=== PATIENT | male | born 1980 | race Caucasian/White ===

== ENCOUNTER 2016-03-20 18:11 | Emergency (ER) | payer SELFPAY ==
[~2016-03-20] VITALS: Ht 188 cm; Wt 90.0 kg
[2016-03-20 18:13] VITALS: BP 188/81; PULSE 68; RESP 17; TEMP 98.1; O2SAT 98
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
[2016-03-20] MEDS ORDERED: CLIN150 PO (19:12)
[2016-03-20] MEDS ORDERED: CLINDAMYCIN INJ 900 MG in SODIUM CHLORIDE 0.9% INJ 100 ML IV ONE (19:15)
[2016-03-20] MEDS ORDERED: ACETAMINOPHEN/HYDROcodone 325 MG/5 MG TAB PO ONE (19:15)
[2016-03-20 20:02] LABS: AUTOMATED NEUTROPHIL # 5.8 TH/MM3 (1.8-7.7); BASOPHIL % 0.3 % (0.0-2.0); EOSINOPHIL # 0.1 TH/MM3 (0-0.4); EOSINOPHIL % 1.2 % (0.0-4.0); HEMATOCRIT 40.9 % (39.0-51.0); HEMO FLAGS DIFF FINAL; LYMPH % 18.8 % (9.0-44.0); LYMPHOCYTE # 1.5 TH/MM3 (1.0-4.8); MEAN CELL VOLUME 78.6 FL (80.0-100.0); MEAN CORPUSCULAR HEMOGLOBIN 27.5 PG (27.0-34.0); MONO % 7.8 % (0.0-8.0); NEUT % 71.9 % (16.0-70.0); PLATELET COUNT 139 TH/MM3 (150-450); RED BLOOD COUNT 5.21 MIL/MM3 (4.50-5.90); RED CELL DISTRIBUTION WIDTH 13.7 % (11.6-17.2); WHITE BLOOD COUNT 8.1 TH/MM3 (4.0-11.0)
[2016-03-20 20:47] LABS: BICARBONATE 26.3 MEQ/L (21.0-32.0)
== END 2016-03-20 20:48 | disposition home or self-care (01) ==
LOC: NEPB 18:11
DX: L03.211 Cellulitis of face (principal); L02.01 Cutaneous abscess of face; F17.210 Nicotine dependence, cigarettes, uncomplicated
CPT/HCPCS: 80048; 85025; 96365

== ENCOUNTER 2017-04-13 15:17 | Inpatient (IN) | payer OTHER ==
[~2017-04-13] VITALS: Ht 180.3 cm; Wt 80.8 kg
[~2017-04-13 15:17] MED LIST: CLIN150 PO
[2017-04-13 15:55] VITALS: BP 130/91; PULSE 100; RESP 20; TEMP 99.9; O2SAT 95
[2017-04-13] MEDS ORDERED: HALOPERIDOL LACTATE 5 MG/ML AMP IM ONE (16:00)
[2017-04-13] MEDS ORDERED: LORazepam 2 MG/ML VIAL IM ONE (16:00)
[2017-04-13] MEDS ORDERED: diphenhydrAMINE HCL 50 MG/ML VIAL IM ONE (16:15)
[2017-04-13] MEDS ORDERED: SODIUM CHLOR 0.9% 1000 ML INJ 1,000 ML IV ONE ×2 (16:57)
[2017-04-13] MEDS ORDERED: VANCOMYCIN INJ 1,000 MG in SODIUM CHLOR 0.9% 250 ML INJ 250 ML IV STA (16:57)
[2017-04-13] MEDS ORDERED: PIPERACIL-TAZO 4.5 GM PREMIX 100 ML IV STA (16:57)
[2017-04-13] MEDS ORDERED: metroNIDAZOLE 500 MG INJ 100 ML IV STA (17:04)
[2017-04-13] MEDS: AZTREONAM INJ 2,000 MG in SODIUM CHLORIDE 0.9% INJ 100 ML IV STA ×2 (17:04→17:34)
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
--- NOTE | 2017-04-13 17:20 | RADRPT ---
EXAM DATE/TIME: 04/13/2017 17:03 [facility] COMPARISON: No previous studies available for comparison. INDICATIONS : Fever MEDICAL HISTORY : None. SURGICAL HISTORY : None. ENCOUNTER: Initial ACUITY: 1 day PAIN SCORE: Non-responsive. LOCATION: chest FINDINGS: A single view of the chest demonstrates the lungs to be symmetrically aerated without evidence of mas s, infiltrate or effusion. There is mild motion artifact. There is mild fullness in the right suprahi lar region which may be vascular.. Osseous structures are intact. CONCLUSION: 1. Mild motion artifact with fullness in the right suprahilar region which may be artifactual. A foll [facility] standard 2 view chest x-ray is recommended. 2. No evidence of pneumonia. Kevin Rush MD on April 13, 2017 at 17:17 Board Certified Radiologist. This report was verified electronically.
[2017-04-13 17:34] VITALS: BP 126/65; PULSE 76; RESP 22; TEMP 98.2; O2SAT 96
[2017-04-13 17:52] LABS: AUTOMATED NEUTROPHIL # 6.3 TH/MM3 (1.8-7.7); BASOPHIL % 0.1 % (0.0-2.0); EOSINOPHIL % 0.4 % (0.0-4.0); HEMATOCRIT 34.6 % (39.0-51.0); HEMOGLOBIN 12.5 GM/DL (13.0-17.0); LYMPH % 11.3 % (9.0-44.0); LYMPHOCYTE # 0.9 TH/MM3 (1.0-4.8); MEAN CELL VOLUME 81.4 FL (80.0-100.0); MEAN CORPUSCULAR HEMOGLOBIN 29.5 PG (27.0-34.0); MEAN PLATELET VOLUME 9.8 FL (7.0-11.0); MONO % 9.9 % (0.0-8.0); MONOCYTE # 0.8 TH/MM3 (0-0.9); NEUT % 78.3 % (16.0-70.0); PLATELET COUNT 128 TH/MM3 (150-450); RED BLOOD COUNT 4.25 MIL/MM3 (4.50-5.90); RED CELL DISTRIBUTION WIDTH 12.5 % (11.6-17.2); WHITE BLOOD COUNT 8.1 TH/MM3 (4.0-11.0)
[2017-04-13 17:54] LABS: MEAN CORPUSCULAR HGB CONC 36.2 % (32.0-36.0)
[2017-04-13 18:04] LABS: PROTHROMBIN TIME - PATIENT 10.5 SEC (9.8-11.6)
[2017-04-13] MEDS ORDERED: LORazepam 2 MG/ML VIAL IV PUSH ONE (18:15)
[2017-04-13 18:16] LABS: ALKALINE PHOSPHATASE 103 U/L (45-117); TOTAL PROTEIN 7.3 GM/DL (6.4-8.2)
[2017-04-13 18:17] LABS: ALBUMIN 3.3 GM/DL (3.4-5.0); ALT (GPT) 50 U/L (12-78); AST (GOT) 40 U/L (15-37); BICARBONATE 26.3 MEQ/L (21.0-32.0); BLOOD UREA NITROGEN 11 MG/DL (7-18); CALCIUM 8.2 MG/DL (8.5-10.1); CHLORIDE 100 MEQ/L (98-107); CREATININE 0.98 MG/DL (0.60-1.30); GLOMERULAR FILTRATION RATE 88 ML/MIN (>89); GLUCOSE,RANDOM 85 MG/DL (74-106); SODIUM (NA) 134 MEQ/L (136-145)
[2017-04-13 18:22] LABS: BANDS 2 % (0-6); LYMPHOCYTES 14 % (9-44); MONOCYTES 3 % (0-8); NEUTROPHIL # MANUAL DIFF 6.7 TH/MM3 (1.8-7.7); POLYS (SEG NEUTROPHILS) 81 % (16-70)
[2017-04-13 18:24] LABS: TOXIC GRANULATION 1+ (NORMAL)
[2017-04-13 19:06] LABS: BILIRUBIN, URINE SMALL (NEG); BLOOD, URINE NEG (NEG); GLUCOSE,URINE NEG (NEG); KETONE, URINE TRACE mg/dL (NEG); NITRITE,URINE NEG (NEG); URINE COLOR YELLOW (YELLW/STRAW); URINE LEUKOCYTE ESTERASE NEG (NEG)
[2017-04-13 20:29] VITALS: BP 118/60; PULSE 84; RESP 16; O2SAT 97
--- NOTE | 2017-04-13 21:24 | RADRPT ---
EXAM DATE/TIME: 04/13/2017 19:41 [facility] COMPARISON: No previous studies available for comparison. INDICATIONS : Abscess, right arm. MEDICAL HISTORY : IV drug use. SURGICAL HISTORY : Deep laceration repair, right arm. ENCOUNTER: Initial ACUITY: 1 day PAIN SCORE: Nonresponsive. LOCATION: Right arm. AREA EVALUATED: Right arm. FINDINGS: Occlusive thrombus is noted within the cephalic vein extending from the distal humerus/anterior cubit al fossa region to the wrist. Diffuse edema is noted. No fluid collection is identified. CONCLUSION: 1. Occlusive thrombus involving the right cephalic vein extending from the distal humerus/anterior cu bital fossa to the wrist. 2. Diffuse edema without focal collection identified. Tomás Ferrell MD on April 13, 2017 at 21:20 Board Certified Radiologist. This report was verified electronically.
[2017-04-13] MEDS ORDERED: BISACODYL 10 MG SUPP RECTAL PRN (23:00)
[2017-04-13] MEDS ORDERED: LACTULOSE SYRUP 20 GM/30 ML CUP PO PRN (23:00)
[2017-04-13] MEDS: ENOXAPARIN SODIUM 100 MG/ML SYRINGE SQ SCH (23:00)
[2017-04-13] MEDS ORDERED: MAGNESIUM HYDROXIDE SUSP 30 ML CUP PO PRN (23:00)
[2017-04-13] MEDS: SODIUM CHLOR 0.9% 1000 ML INJ 1,000 ML IV SCH (23:00)
[2017-04-13] MEDS ORDERED: SODIUM CHLORIDE 0.9% FLUSH 10 ML FLUSH IV FLUSH PRN (23:00)
[2017-04-13] MEDS ORDERED: ACETAMINOPHEN 325 MG TAB PO PRN (23:00)
[2017-04-13] MEDS ORDERED: ONDANSETRON HCL 4 MG/2 ML VIAL IVP PRN (23:00)
[2017-04-13] MEDS ORDERED: Vancomycin Consult Pharmacy 1 EA OTHER SCH (23:00)
[2017-04-13] MEDS ORDERED: SENNOSIDES 8.6 MG TAB PO PRN (23:00)
--- NOTE | 2017-04-13 23:01 | HHI.HP ---
[facility] Admission Diagnosis Diagnoses: (1) Sepsis Diagnosis: Principal (2) Right arm cellulitis Diagnosis: Principal (3) DVT (deep venous thrombosis) Diagnosis: Principal (4) Drug intoxication Diagnosis: Principal (5) IVDU (intravenous drug user) Diagnosis: Principal Travel History International Travel<30 Days: No Contact w/Intl Traveler <30 Da: No Traveled to Known Affected Are: No History of Present Illness This is a 36-year-old male with a PMH of Tobacco Abuse and IVDU brought to the ER by Police under Baxter Act secondary to drug intoxication and apparently threatening bystanders. Admits to ongoing IVDU, used Meth IV earlier today. Noted to have right arm cellulitis on exam, pt reports symptoms ongoing for approx 10 days. Very poor historian due to acute drug intoxication, history limited. On arrival, BP 130/91, HR 100, O2 sat 95% on RA, Temp 99.9. WBC normal however elevated neutrophil count. Platelets 128, producing 139 03/20/16. Chemistry essentially unremarkable. Acid normal. INR 1.0. UA negative. Urine Drug Screen positive for Amphetamines, Cocaine, Opiates and Marijuana. Alcohol negative. CXR with no evidence of pneumonia. RUE Doppler w/ occlusive thrombus of right cephalic vein extending from distal humerus/anterior decubital fossa to wrist. S/p Blood/Wound Cultures, Vanc/Zosyn in ER. Review of Systems Except as stated in HPI: all other systems reviewed are Neg ROS: Unable to obtain as patient large uncooperative with exam. Past Family Social History Past Medical History PMH: Tobacco Abuse and IVDU Past Surgical History PAST SURGICAL HISTORY: Laceration Repair Right Arm. Allergies: Coded Allergies: haloperidol (Verified Allergy, Severe, Tongue swelling, respiratory difficulty, 04/13/17) penicillin G (Unverified Allergy, Intermediate, SWELLING, HIVES, 10/28/16) Family History PAST FAMILY HISTORY: Reviewed. No h/o DM or CAD Social History PAST SOCIAL HISTORY: Occasional alcohol. Smokes 1ppd. IVDU +Amphetamines/ Opiates/Cocaine, +Marijuana. Physical Exam Vital Signs Vital Signs Date Time Temp Pulse Resp B/P (MAP) Pulse Ox O2 Delivery O2 Flow Rate FiO2 04/13/17 20:29 84 16 118/60 (79) 97 Room Air 04/13/17 17:36 76 22 04/13/17 17:34 98.2 76 22 126/65 (85) 96 Room Air 04/13/17 17:19 94 Room Air 04/13/17 15:55 99.9 100 20 130/91 (104) 95 Room Air Physical Exam PE: GENERAL: Middle-aged white male in no acute distress, has blanket over his face , minimally cooperative w/ exam, not answering many questions. HEENT: PERRLA, EOMI. No scleral icterus or conjunctival pallor. No lid lag or facial droop. CARDIOVASCULAR: Regular rate and rhythm. No obvious murmurs to auscultation. No chest tenderness to palpation. RESPIRATORY: No obvious rhonchi or wheezing. Clear to auscultation. Breath sounds equal bilaterally. GASTROINTESTINAL: Abdomen soft, non-tender, nondistended. BS normal. MUSCULOSKELETAL: Extremities without clubbing, cyanosis, or edema. No obvious deformities. RUE w/ erythema/edema extending down to forearm/wrist. Pulses intact. NEUROLOGICAL: Awake, alert and oriented x4. No focal neurologic deficits. Moving both upper and lower extremities spontaneously. Laboratory Laboratory Tests Test 04/13/17 16:05 04/13/17 17:15 Urine Color YELLOW Urine Turbidity CLEAR Urine pH 6.0 Urine Specific [place] 1.026 Urine Protein TRACE Urine Glucose (UA) NEG Urine Ketones TRACE Urine Occult Blood NEG Urine Nitrite NEG Urine Bilirubin SMALL Urine Urobilinogen GREATER THAN 12.0 Urine Leukocyte Esterase NEG Urine WBC LESS THAN 1 Microscopic Urinalysis Comment CULT NOT INDICATED Urine Opiates Screen POS Urine Barbiturates Screen NEG Urine Amphetamines Screen POS Urine Benzodiazepines Screen NEG Urine Cocaine Screen POS Urine Cannabinoids Screen POS White Blood Count 8.1 Red Blood Count 4.25 Hemoglobin 12.5 Hematocrit 34.6 Mean Corpuscular Volume 81.4 Mean Corpuscular Hemoglobin 29.5 Mean Corpuscular Hemoglobin Concent 36.2 Red Cell Distribution Width 12.5 Platelet Count 128 Mean Platelet Volume 9.8 Neutrophils (%) (Auto) 78.3 Lymphocytes (%) (Auto) 11.3 Monocytes (%) (Auto) 9.9 Eosinophils (%) (Auto) 0.4 Basophils (%) (Auto) 0.1 Neutrophils # (Auto) 6.3 Lymphocytes # (Auto) 0.9 Monocytes # (Auto) 0.8 Eosinophils # (Auto) 0.0 Basophils # (Auto) 0.0 CBC Comment AUTO DIFF Differential Total Cells Counted 100 Neutrophils % (Manual) 81 Band Neutrophils % 2 Lymphocytes % 14 Monocytes % 3 Neutrophils # (Manual) 6.7 Differential Comment FINAL DIFF MANUAL Toxic Granulation 1+ Platelet Estimate LOW Platelet Morphology Comment NORMAL Prothrombin Time 10.5 Prothromb Time International Ratio 1.0 Activated Partial Thromboplast Time 26.9 Blood Urea Nitrogen 11 Creatinine 0.98 Random Glucose 85 Total Protein 7.3 Albumin 3.3 Calcium Level 8.2 Alkaline Phosphatase 103 Aspartate Amino Transf (AST/SGOT) 40 Alanine Aminotransferase (ALT/SGPT) 50 Total Bilirubin 1.0 Sodium Level 134 Potassium Level 3.8 Chloride Level 100 Carbon Dioxide Level 26.3 Anion Gap 8 Estimat Glomerular Filtration Rate 88 Lactic Acid Level 1.5 Thyroid Stimulating Hormone 3rd Gen 0.169 Ethyl Alcohol Level LESS THAN 3 Date/Time Source Procedure Growth Status 04/13/17 17:23 Blood Peripheral Aerobic Blood Culture Pending Received 04/13/17 17:23 Blood Peripheral Anaerobic Blood Culture Pending Received Result Diagram: 04/13/17 1715 04/13/17 1715 Caprini VTE Risk Assessment Caprini VTE Risk Assessment: Mod/High Risk (score >= 2) Caprini Risk Assessment Model Point Value = 1 Point Value = 2 Point Value = 3 Point Value = 5 Age 41-60 Minor surgery BMI > 25 kg/m2 Swollen legs Varicose veins or History of unexplained or recurrent spontaneous Oral contraceptives or hormone replacement Sepsis (< 1 month) Serious lung disease, including pneumonia (< 1 month) Abnormal pulmonary function Acute myocardial infarction Congestive heart failure (< 1 month) History of inflammatory bowel disease Medical patient at bed rest Age 61-74 Arthroscopic surgery Major open surgery (> 45 min) Laparoscopic surgery (> 45 min) Malignancy Confined to bed (> 72 hours) Immobilizing plaster cast Central venous access Age >= 75 History of VTE Family history of VTE Factor V Leiden Prothrombin [id number] Lupus anticoagulant Anticardiolipin antibodies Elevated serum homocysteine Heparin-induced thrombocytopenia Other congenital or acquired thrombophilia Stroke (< 1 month) Elective arthroplasty Hip, pelvis, or leg fracture Acute spinal cord injury (< 1 month) Prophylaxis Regimen Total Risk Factor Score Risk Level Prophylaxis Regimen 0-1 Low Early ambulation 2 Moderate Order ONE of the following: *Sequential Compression Device (SCD) *Heparin 5000 units SQ BID 3-4 Higher Order ONE of the following medications: *Heparin 5000 units SQ TID *Enoxaparin/Lovenox 40 mg SQ daily (WT < 150 kg, CrCl > 30 mL/min) *Enoxaparin/Lovenox 30 mg SQ daily (WT < 150 kg, CrCl > 10-29 mL/min) *Enoxaparin/Lovenox 30 mg SQ BID (WT < 150 kg, CrCl > 30 mL/min) AND/OR *Sequential Compression Device (SCD) 5 or more Highest Order ONE of the following medications: *Heparin 5000 units SQ TID (Preferred with Epidurals) *Enoxaparin/Lovenox 40 mg SQ daily (WT < 150 kg, CrCl > 30 mL/min) *Enoxaparin/Lovenox 30 mg SQ daily (WT < 150 kg, CrCl > 10-29 mL/min) *Enoxaparin/Lovenox 30 mg SQ BID (WT < 150 kg, CrCl > 30 mL/min) AND *Sequential Compression Device (SCD) Assessment and Plan Problem List: (1) Sepsis ICD Code: A41.9 - Sepsis, unspecified organism (2) Right arm cellulitis ICD Code: L03.113 - Cellulitis of right upper limb Status: Acute (3) DVT (deep venous thrombosis) ICD Code: I82.409 - Acute embolism and thrombosis of unspecified deep veins of unspecified lower extremity (4) Drug intoxication ICD Code: F19.929 - Other psychoactive substance use, unspecified with intoxication, unspecified (5) IVDU (intravenous drug user) ICD Code: F19.90 - Other psychoactive substance use, unspecified, uncomplicated Assessment and Plan A/P: 1. Sepsis: Temp 99.9, HR 100, WBC normal however elevated neutrophil count. Source-right arm cellulitis. S/p Blood/Wound Cultures, Vanc/Zosyn in ER. Follow up cultures, continue IV Abx, IVF for hydration. 2. RUE Cellulitis: symptoms apparently x10 days, no previous treatment. Continue w/ IV Abx, IVF, follow up cultures. 3. DVT: Acute RUE DVT, Doppler w/ occlusive thrombus involving right cephalic vein extending from distal humerus/anterior cubital fossa to the wrist images reviewed by me. Will start Lovenox 90mg sq q12h. Pt very poor candidate for senior living anticoagulation due to IVDU, non-compliance and unlikely follow up. 4. Drug Intoxication: Acute drug intoxication, placed under Baxter Act by Police for pubic disruption and threatening bystanders, consult Psych for further eval. Ativan prn. 5. IVDU: R/o Endocarditis in light of IVDU w/ acute sepsis, check Echo to eval for possible vegetation. Ativan prn for withdrawal. 6. DVT Prophylaxis: Lovenox for acute DVT as above. 7. Social work for d/c planning as needed. 8. Labs/records/imaging reviewed by me. Case discussed w/ ER physician at length. Physician Certification 2 Midnight Certification Type: Admission for Inpatient Services Order for Inpatient Services The services are ordered in accordance with Medicare regulations or non- Medicare payer requirements, as applicable. In the case of services not specified as inpatient-only, they are appropriately provided as inpatient services in accordance with the 2-midnight benchmark. Estimated LOS (days): 2 days is the estimated time the patient will need to remain in the hospital, assuming treatment plan goals are met and no additional complications. Post-Hospital Plan: Not yet determined Ofelia Pantoja MD Apr 13, 2017 23:01
--- NOTE | 2017-04-13 23:05 | PD ---
Data Data Last Documented VS Vital Signs Date Time Temp Pulse Resp B/P (MAP) Pulse Ox O2 Delivery O2 Flow Rate FiO2 04/13/17 20:29 84 16 118/60 (79) 97 Room Air 04/13/17 17:34 98.2 Orders Orders Lorazepam Inj (Ativan Inj) (04/13/17 16:00) Haloperidol Inj (Haldol Inj) (04/13/17 16:00) Diphenhydramine Inj (Benadryl Inj) (04/13/17 16:15) Sepsis Workup Initiated (04/13/17 ) Electrocardiogram (04/13/17 16:57) Complete Blood Count With Diff (04/13/17 16:57) Comprehensive Metabolic Panel (04/13/17 16:57) Prothrombin Time / Inr (Pt) (04/13/17 16:57) Act Partial Throm Time (Ptt) (04/13/17 16:57) Lactic Acid Sepsis Protocol (04/13/17 16:57) Urinalysis - C+S If Indicated (04/13/17 16:57) Blood Culture (04/13/17 16:57) Wound Culture And Gram Stain (04/13/17 16:57) Chest, Single Ap (04/13/17 16:57) Ecg Monitoring (04/13/17 16:57) Iv Access Insert/Monitor (04/13/17 16:57) Oximetry (04/13/17 16:57) Oxygen Administration (04/13/17 16:57) Piperacil-Tazo 4.5 Gm Premix (Zosyn 4.5 (04/13/17 16:57) Vancomycin Inj (Vancomycin Inj) (04/13/17 16:57) Sodium Chlor 0.9% 1000 Ml Inj (Ns 1000 M (04/13/17 16:57) Sodium Chlor 0.9% 1000 Ml Inj (Ns 1000 M (04/13/17 16:57) Thyroid Stimulating Hormone (04/13/17 16:57) Psych Screen (04/13/17 16:57) Drug Screen, Random Urine (04/13/17 16:57) Alcohol (Ethanol) (04/13/17 16:57) Aztreonam Inj (Azactam Inj) (04/13/17 17:04) Metronidazole 500 Mg Inj (Flagyl 500 Mg (04/13/17 17:04) Us Arm Soft Tissue (04/13/17 ) Lorazepam Inj (Ativan Inj) (04/13/17 18:15) Restraints Violent (04/13/17 18:14) Enoxaparin Inj (Lovenox Inj) (04/13/17 23:00) Consult Psychiatry (04/13/17 ) Vancomycin Consult Pharmacy (Vancomycin (04/13/17 23:00) Echo 2d Comp With Doppler (04/13/17 ) Aztreonam Inj (Azactam Inj) (04/14/17 06:00) Admit To Inpatient (04/13/17 ) Vital Signs (Adult) Q4H (04/13/17 22:58) Activity Oob With Assistance (04/13/17 22:58) Proof Machine Operator / Telemetry .CONTINUOUS (04/13/17 22:58) Diet Regular Basic (04/14/17 Breakfast) Sodium Chlor 0.9% 1000 Ml Inj (Ns 1000 M (04/13/17 22:58) Sodium Chloride 0.9% Flush (Ns Flush) (04/13/17 23:00) Sodium Chloride 0.9% Flush (Ns Flush) (04/14/17 09:00) Ondansetron Inj (Zofran Inj) (04/13/17 23:00) Comprehensive Metabolic Panel (04/14/17 06:00) Complete Blood Count With Diff (04/14/17 06:00) Case Management Consult (04/13/17 22:58) Acetaminophen (Tylenol) (04/13/17 23:00) Oxycodone (Roxicodone) (04/13/17 23:00) Oxycodone (Roxicodone) (04/13/17 23:00) Docusate Sodium-Senna (Imelda-Colace) (04/14/17 09:00) Magnesium Hydroxide Liq (Milk Of Magnesi (04/13/17 23:00) Sennosides (Senokot) (04/13/17 23:00) Bisacodyl Supp (Dulcolax Supp) (04/13/17 23:00) Lactulose Liq (Lactulose Liq) (04/13/17 23:00) Inpatient Certification (04/13/17 ) Lorazepam Inj (Ativan Inj) (04/13/17 23:00) Labs Laboratory Tests Test 04/13/17 16:05 04/13/17 17:15 Urine Color YELLOW Urine Turbidity CLEAR Urine pH 6.0 Urine Specific [place] 1.026 Urine Protein TRACE mg/dL Urine Glucose (UA) NEG mg/dL Urine Ketones TRACE mg/dL Urine Occult Blood NEG Urine Nitrite NEG Urine Bilirubin SMALL Urine Urobilinogen GREATER THAN 12.0 MG/DL Urine Leukocyte Esterase NEG Urine WBC LESS THAN 1 /hpf Microscopic Urinalysis Comment CULT NOT INDICATED Urine Opiates Screen POS Urine Barbiturates Screen NEG Urine Amphetamines Screen POS Urine Benzodiazepines Screen NEG Urine Cocaine Screen POS Urine Cannabinoids Screen POS White Blood Count 8.1 TH/MM3 Red Blood Count 4.25 MIL/MM3 Hemoglobin 12.5 GM/DL Hematocrit 34.6 % Mean Corpuscular Volume 81.4 FL Mean Corpuscular Hemoglobin 29.5 PG Mean Corpuscular Hemoglobin Concent 36.2 % Red Cell Distribution Width 12.5 % Platelet Count 128 TH/MM3 Mean Platelet Volume 9.8 FL Neutrophils (%) (Auto) 78.3 % Lymphocytes (%) (Auto) 11.3 % Monocytes (%) (Auto) 9.9 % Eosinophils (%) (Auto) 0.4 % Basophils (%) (Auto) 0.1 % Neutrophils # (Auto) 6.3 TH/MM3 Lymphocytes # (Auto) 0.9 TH/MM3 Monocytes # (Auto) 0.8 TH/MM3 Eosinophils # (Auto) 0.0 TH/MM3 Basophils # (Auto) 0.0 TH/MM3 CBC Comment AUTO DIFF Differential Total Cells Counted 100 Neutrophils % (Manual) 81 % Band Neutrophils % 2 % Lymphocytes % 14 % Monocytes % 3 % Neutrophils # (Manual) 6.7 TH/MM3 Differential Comment FINAL DIFF MANUAL Toxic Granulation 1+ Platelet Estimate LOW Platelet Morphology Comment NORMAL Prothrombin Time 10.5 SEC Prothromb Time International Ratio 1.0 RATIO Activated Partial Thromboplast Time 26.9 SEC Blood Urea Nitrogen 11 MG/DL Creatinine 0.98 MG/DL Random Glucose 85 MG/DL Total Protein 7.3 GM/DL Albumin 3.3 GM/DL Calcium Level 8.2 MG/DL Alkaline Phosphatase 103 U/L Aspartate Amino Transf (AST/SGOT) 40 U/L Alanine Aminotransferase (ALT/SGPT) 50 U/L Total Bilirubin 1.0 MG/DL Sodium Level 134 MEQ/L Potassium Level 3.8 MEQ/L Chloride Level 100 MEQ/L Carbon Dioxide Level 26.3 MEQ/L Anion Gap 8 MEQ/L Estimat Glomerular Filtration Rate 88 ML/MIN Lactic Acid Level 1.5 mmol/L Thyroid Stimulating Hormone 3rd Gen 0.169 uIU/ML Ethyl Alcohol Level LESS THAN 3 MG/DL MDM Supervised Visit with LESLIE: Yes Narrative Course This case was checked out to me to follow up the workup and assist with disposition I have reviewed the entire to the workup and reevaluated the patient He is a homeless IV drug abuser with right arm infection also found to have right arm DVT. He is received multiple IV antibiotics. I reviewed the case in detail with hospitalist Dr. Pantoja She will admit and will consult psychiatry as he is under Baxter act Diagnosis Primary Impression: Right arm cellulitis Additional Impressions: Acute deep vein thrombosis (DVT) of right upper extremity Qualified Codes: I82.621 - Acute embolism and thrombosis of deep veins of right upper extremity IV drug abuse Admitting Information Admitting Physician Requests: Admit Kenroy Leyva MD Apr 13, 2017 23:05
[2017-04-14 01:15] VITALS: BP 137/88; PULSE 107; RESP 19; TEMP 98; O2SAT 99
[2017-04-14] MEDS: AZTREONAM INJ 2,000 MG in SODIUM CHLORIDE 0.9% INJ 100 ML IV SCH ×3 (01:46→17:09)
[2017-04-14 03:00] VITALS: BP 121/80; PULSE 77; RESP 18; TEMP 98.7; O2SAT 98
[2017-04-14 04:05] LABS: ALBUMIN 2.9 GM/DL (3.4-5.0); ALT (GPT) 46 U/L (12-78); AST (GOT) 31 U/L (15-37); BICARBONATE 25.3 MEQ/L (21.0-32.0); BLOOD UREA NITROGEN 8 MG/DL (7-18); CALCIUM 8.1 MG/DL (8.5-10.1); CHLORIDE 107 MEQ/L (98-107); CREATININE 0.75 MG/DL (0.60-1.30); GLOMERULAR FILTRATION RATE 119 ML/MIN (>89); GLUCOSE,RANDOM 98 MG/DL (74-106); SODIUM (NA) 141 MEQ/L (136-145)
[2017-04-14 04:07] LABS: ALKALINE PHOSPHATASE 97 U/L (45-117); TOTAL BILIRUBIN ADULT 0.8 MG/DL (0.2-1.0); TOTAL PROTEIN 6.7 GM/DL (6.4-8.2)
[2017-04-14 04:09] LABS: AUTOMATED NEUTROPHIL # 5.2 TH/MM3 (1.8-7.7); BASOPHIL % 0.2 % (0.0-2.0); EOSINOPHIL % 0.7 % (0.0-4.0); HEMATOCRIT 38.2 % (39.0-51.0); HEMOGLOBIN 13.4 GM/DL (13.0-17.0); LYMPH % 14.9 % (9.0-44.0); MEAN CELL VOLUME 81.7 FL (80.0-100.0); MEAN CORPUSCULAR HEMOGLOBIN 28.6 PG (27.0-34.0); MEAN CORPUSCULAR HGB CONC 35.1 % (32.0-36.0); MONO % 10.8 % (0.0-8.0); MONOCYTE # 0.8 TH/MM3 (0-0.9); NEUT % 73.4 % (16.0-70.0); PLATELET COUNT 143 TH/MM3 (150-450); RED BLOOD COUNT 4.67 MIL/MM3 (4.50-5.90); RED CELL DISTRIBUTION WIDTH 12.7 % (11.6-17.2)
[2017-04-14] MEDS: VANCOMYCIN INJ 1,500 MG in SODIUM CHLORID 0.9% 500 ML INJ 500 ML IV SCH ×3 (04:43→20:32)
[2017-04-14 08:00] VITALS: BP_SYST 113; BP_SYST 115; BP_DIAS 71; BP_DIAS 78; PULSE 65; PULSE 82; RESP 18; TEMP 98.2; O2SAT 98; O2SAT 99
[2017-04-14] MEDS: DOCUSATE SODIUM 50 MG/SENNA 8.6 MG TAB PO SCH ×2 (08:25→20:32)
--- NOTE | 2017-04-14 08:50 | PD.PSY.CON ---
Provisional Diagnosis Admission Date Apr 13, 2017 at 23:07 [place] I. Polysubstance dependence including opiates, cannabis, amphetamines and cocaine, substance induced psychosis [place] II. Personality disorder [place] III. Hepatitis C History of Present Illness Service Psychiatry Consult Requested By ER team Reason for Consult [place] act Primary Care Physician Unknown HPI The patient is a 36-year-old man, domiciled with his mother Alicia, single, unemployed, with psychiatric history of polysubstance dependence, including cocaine, cannabis, opiates and amphetamines, multiple ER visits with substance related issues, medical history of hepatitis C, who was brought in under the Baxter act by [place] [employer], after threatening bystanders and the police. Patient admits to using IV methamphetamine and heroine yesterday. Patient states he has not slept for 7 days. He denies suicidal ideation. Patient states he has an infection in the right arm which she has had for "10 days". He states no fever or chills but he is an unreliable historian. Patient appears intoxicated on stimulants. Patient is allergic to haloperidol and penicillin. Patient is under observation due to cellulitis. He was consulted to psychiatry to address aggressive and psychotic behavior. Chart was reviewed. Case discussed with nurse in charge. On psychiatric evaluation today the patient is cooperative, but irritable. The beginning oppositional, but with reassurance patient was able to provide information for the psychiatric assessment. She reports that he has been using multiple drugs in the last days. He says that "I'm used to it". He reports daily use of at least heroine amphetamines, sometimes cocaine and cannabis. His preferred drug is heroine. He denies depressive symptoms, he denies anxiety , he denies symptoms of withdrawal at this moment, he denies suicidal and homicidal ideation, he denies visual and auditory hallucinations. I was able to talk to the patient about the importance of in treatment for addiction, he was interested on it, he will try to go to [facility]. Review of Systems Constitutional: DENIES: Diaphoretic episodes, Fatigue, Fever, Weight gain, Weight loss, Chills, Dizziness, Change in appetite, Night Sweats Endocrine: DENIES: Heat/cold intolerance, Polydipsia, Polyuria, Polyphagia Eyes: DENIES: Blurred vision, Diplopia, Eye inflammation, Eye pain, Vision loss , Photosensitivity, Double Vision Ears, nose, mouth, throat: DENIES: Tinnitus, Hearing loss, Vertigo, Nasal discharge, Oral lesions, Throat pain, Hoarseness, Ear Pain, Running Nose, Epistaxis, Sinus Pain, Toothache, Odynophagia Respiratory: DENIES: Apneas, Cough, Snoring, Wheezing, Hemoptysis, Sputum production, Shortness of breath Cardiovascular: DENIES: Chest pain, Palpitations, Syncope, Dyspnea on Exertion , PND, Lower Extremity Edema, Orthopnea, Claudication Gastrointestinal: DENIES: Abdominal pain, Black stools, Bloody stools, Constipation, Diarrhea, Nausea, Vomiting, Difficulty Swallowing, Anorexia Genitourinary: DENIES: Sexual dysfunction, Urinary frequency, Urinary incontinence, Urgency, Hematuria, Dysuria, Nocturia, Penile Discharge, Testicular Pain, Testicular Swelling Musculoskeletal: DENIES: Joint pain, Muscle aches, Stiffness, Joint Swelling, Back pain, Neck pain Integumentary: DENIES: Abnormal pigmentation, Nail changes, Pruritus, Rash Hematologic/lymphatic: DENIES: Bruising, Lymphadenopathy Immunologic/allergic: DENIES: Eczema, Urticaria Neurologic: DENIES: Abnormal gait, Headache, Localized weakness, Paresthesias, Seizures, Speech Problems, Tremor, Poor Balance Psychiatric: DENIES: Anxiety, Confusion, Mood changes, Depression, Hallucinations, Agitation, Suicidal Ideation, Homicidal Ideation, Delusions Past Family Social History Coded Allergies: haloperidol (Verified Allergy, Severe, Tongue swelling, respiratory difficulty, 04/13/17) penicillin G (Unverified Allergy, Intermediate, SWELLING, HIVES, 10/28/16) Active Scripts Clindamycin (Cleocin) 150 Mg Cap, 300 MG PO Q6H for Infection, #80 CAP Prov:Cristhian Farah MD 03/20/16 Current Medications Medications (Trade) Dose Ordered Sig/Samra Route Start Time Stop Time Status Last Admin (Lovenox Inj) 90 mg Q12H SQ 04/13/17 23:00 04/13/17 23:00 Pharmacy Profile Note 0 ml @ 0 mls/hr UNSCH OTHER 04/13/17 23:00 Aztreonam 2000 mg/ Sodium Chloride 100 ml @ 200 mls/hr Q8H IV 04/14/17 01:00 04/14/17 01:46 Sodium Chloride 1,000 ml @ 100 mls/hr Q10H IV 04/13/17 23:00 04/13/17 23:00 (NS Flush) 2 ml UNSCH PRN IV FLUSH 04/13/17 23:00 (NS Flush) 2 ml BID IV FLUSH 04/14/17 09:00 (Zofran Inj) 4 mg Q6H PRN IVP 04/13/17 23:00 (Tylenol) 650 mg Q6H PRN PO 04/13/17 23:00 (Roxicodone) 10 mg Q4H PRN PO 04/13/17 23:00 (Roxicodone) 5 mg Q4H PRN PO 04/13/17 23:00 (Imelda-Colace) 1 tab BID PO 04/14/17 09:00 (Milk Of Magnesia Liq) 30 ml Q12H PRN PO 04/13/17 23:00 (Senokot) 17.2 mg Q12H PRN PO 04/13/17 23:00 (Dulcolax Supp) 10 mg DAILY PRN RECTAL 04/13/17 23:00 (Lactulose Liq) 30 ml DAILY PRN PO 04/13/17 23:00 (Ativan Inj) 1 mg Q2H PRN IV PUSH 04/13/17 23:00 Vancomycin HCl 1500 mg/Sodium Chloride 515 ml @ 250 mls/hr Q8H IV 04/14/17 04:00 04/14/17 04:43 Miscellaneous Information SPECIFIC LAB TO BE ... ONCE ONCE .XX 04/15/17 03:45 04/15/17 03:46 Family Psych History He says his grandmother is bipolar Social History Patient was born and raised in [place], [facility] his mother, his single, unemployed, his highest level of education is high school Patient's Strengths (min. 2) Verbal communication Physical Exam Vital Signs Vital Signs Date Time Temp Pulse Resp B/P (MAP) Pulse Ox O2 Delivery O2 Flow Rate FiO2 04/14/17 03:00 98.7 77 18 121/80 (94) 98 04/13/17 20:29 Room Air I/O 04/14/17 04/14/17 04/15/17 08:00 16:00 00:00 Intake Total 220 ml Output Total 700 ml Balance -480 ml Lab Results Test 04/13/17 16:05 04/13/17 17:15 04/14/17 03:20 Urine Color YELLOW Urine Turbidity CLEAR Urine pH 6.0 Urine Specific [place] 1.026 Urine Protein TRACE mg/dL Urine Glucose (UA) NEG mg/dL Urine Ketones TRACE mg/dL Urine Occult Blood NEG Urine Nitrite NEG Urine Bilirubin SMALL Urine Urobilinogen GREATER THAN 12.0 MG/DL Urine Leukocyte Esterase NEG Urine WBC LESS THAN 1 /hpf Microscopic Urinalysis Comment CULT NOT INDICATED Urine Opiates Screen POS Urine Barbiturates Screen NEG Urine Amphetamines Screen POS Urine Benzodiazepines Screen NEG Urine Cocaine Screen POS Urine Cannabinoids Screen POS White Blood Count 8.1 TH/MM3 7.0 TH/MM3 Red Blood Count 4.25 MIL/MM3 4.67 MIL/MM3 Hemoglobin 12.5 GM/DL 13.4 GM/DL Hematocrit 34.6 % 38.2 % Mean Corpuscular Volume 81.4 FL 81.7 FL Mean Corpuscular Hemoglobin 29.5 PG 28.6 PG Mean Corpuscular Hemoglobin Concent 36.2 % 35.1 % Red Cell Distribution Width 12.5 % 12.7 % Platelet Count 128 TH/MM3 143 TH/MM3 Mean Platelet Volume 9.8 FL 9.0 FL Neutrophils (%) (Auto) 78.3 % 73.4 % Lymphocytes (%) (Auto) 11.3 % 14.9 % Monocytes (%) (Auto) 9.9 % 10.8 % Eosinophils (%) (Auto) 0.4 % 0.7 % Basophils (%) (Auto) 0.1 % 0.2 % Neutrophils # (Auto) 6.3 TH/MM3 5.2 TH/MM3 Lymphocytes # (Auto) 0.9 TH/MM3 1.0 TH/MM3 Monocytes # (Auto) 0.8 TH/MM3 0.8 TH/MM3 Eosinophils # (Auto) 0.0 TH/MM3 0.0 TH/MM3 Basophils # (Auto) 0.0 TH/MM3 0.0 TH/MM3 CBC Comment AUTO DIFF DIFF FINAL Differential Total Cells Counted 100 Neutrophils % (Manual) 81 % Band Neutrophils % 2 % Lymphocytes % 14 % Monocytes % 3 % Neutrophils # (Manual) 6.7 TH/MM3 Differential Comment FINAL DIFF MANUAL Toxic Granulation 1+ Platelet Estimate LOW Platelet Morphology Comment NORMAL Prothrombin Time 10.5 SEC Prothromb Time International Ratio 1.0 RATIO Activated Partial Thromboplast Time 26.9 SEC Blood Urea Nitrogen 11 MG/DL 8 MG/DL Creatinine 0.98 MG/DL 0.75 MG/DL Random Glucose 85 MG/DL 98 MG/DL Total Protein 7.3 GM/DL 6.7 GM/DL Albumin 3.3 GM/DL 2.9 GM/DL Calcium Level 8.2 MG/DL 8.1 MG/DL Alkaline Phosphatase 103 U/L 97 U/L Aspartate Amino Transf (AST/SGOT) 40 U/L 31 U/L Alanine Aminotransferase (ALT/SGPT) 50 U/L 46 U/L Total Bilirubin 1.0 MG/DL 0.8 MG/DL Sodium Level 134 MEQ/L 141 MEQ/L Potassium Level 3.8 MEQ/L 3.7 MEQ/L Chloride Level 100 MEQ/L 107 MEQ/L Carbon Dioxide Level 26.3 MEQ/L 25.3 MEQ/L Anion Gap 8 MEQ/L 9 MEQ/L Estimat Glomerular Filtration Rate 88 ML/MIN 119 ML/MIN Lactic Acid Level 1.5 mmol/L Thyroid Stimulating Hormone 3rd Gen 0.169 uIU/ML Ethyl Alcohol Level LESS THAN 3 MG/DL Date/Time Source Procedure Growth Status 04/13/17 17:23 Blood Peripheral Aerobic Blood Culture Pending Received 04/13/17 17:23 Blood Peripheral Anaerobic Blood Culture Pending Received Mental Status Examination Appearance: Appropriate Consciousness: Alert Orientation: x4 Motor Activity: Normal gait Speech: Unremarkable Language: Adequate Fund of Knowledge: Adequate Attention and Concentration: Adequate Memory: Unremarkable Mood: Irritable Affect: Labile Thought Process & Associations: Intact Thought Content: Appropriate Hallucination Type: None Delusion Type: None Suicidal Ideation: No Suicidal Plan: No Suicidal Intention: No Homicidal Ideation: No Homicidal Plan: No Homicidal Intention: No Insight: Fair Judgment: Impulsive Assessment & Plan Problem List: (1) Polysubstance (excluding opioids) dependence ICD Codes: F19.20 - Other psychoactive substance dependence, uncomplicated Assessment & Plan: The patient is a 36 years old man with psychiatric history of polysubstance dependence, who presents in the ER under [place] act due to disorganized and aggressive behavior in the community. On psychiatric evaluation today the patient seems to be clinically sober, oriented 3, denies depressive symptoms, denies anxiety, denies aron and psychosis. He denies suicidal and homicidal ideation, he denies visual and auditory hallucinations. Behavior presented yesterday in front of low enforcement given the results the Baxter act was most probably secondary to substance intoxication, patient was positive for opiates, amphetamines, cocaine and cannabis his arrival in the ER. He does not meet criteria for involuntary psychiatric admission at this moment. Support, motivation and psychoeducation provided. He will be provided with a referral to [facility] for addiction treatment. Baxter act will be lifted Assessment & Plan Estimated LOS: days Raul Vieira MD Apr 14, 2017 08:50
[2017-04-14] MEDS: SODIUM CHLOR 0.9% 1000 ML INJ 1,000 ML IV SCH ×2 (09:00→19:00)
[2017-04-14] MEDS: SODIUM CHLORIDE 0.9% FLUSH 10 ML FLUSH IV FLUSH SCH ×2 (09:17→20:32)
[2017-04-14] MEDS: ENOXAPARIN SODIUM 100 MG/ML SYRINGE SQ SCH ×2 (12:04→22:15)
--- NOTE | 2017-04-14 13:34 | HHI.PR ---
Subjective Remarks Follow-up for cellulitis Patient more awake but still very sleepy. Complaints of similar right upper extremity pain, antecubital area. No fever. Denies any shortness of breath, cough, chills. Objective Vitals Vital Signs Date Time Temp Pulse Resp B/P (MAP) Pulse Ox O2 Delivery O2 Flow Rate FiO2 04/14/17 08:00 98.2 82 18 113/71 (85) 98 04/14/17 08:00 98.2 65 18 115/78 (90) 99 04/14/17 03:00 98.7 77 18 121/80 (94) 98 04/14/17 01:15 98.0 107 19 137/88 (104) 99 04/13/17 20:29 84 16 118/60 (79) 97 Room Air 04/13/17 17:36 76 22 04/13/17 17:34 98.2 76 22 126/65 (85) 96 Room Air 04/13/17 17:19 94 Room Air 04/13/17 15:55 99.9 100 20 130/91 (104) 95 Room Air I/O 04/13/17 04/13/17 04/13/17 04/14/17 04/14/17 04/14/17 07:00 15:00 23:00 07:00 15:00 23:00 Intake Total 220 ml Output Total 700 ml Balance -480 ml Intake Oral 120 ml IV Total 100 ml Output Urine Total 700 ml # Voids 0 # Bowel Movements 0 Result Diagram: 04/14/17 0320 04/14/17 0320 Objective Remarks GENERAL: Middle-aged white male in no acute distress, sleepy but easily arousable. Not very cooperative. HEENT: PERRLA, EOMI. No scleral icterus or conjunctival pallor. CARDIOVASCULAR: Regular rate and rhythm. No obvious murmurs to auscultation. No chest tenderness to palpation. RESPIRATORY: No obvious rhonchi or wheezing. Clear to auscultation. Breath sounds equal bilaterally. GASTROINTESTINAL: Abdomen soft, non-tender, nondistended. BS normal. MUSCULOSKELETAL: Extremities without clubbing, cyanosis, or edema.RUE w/ erythema/edema extending down to forearm/wrist, there is also a fluctuant mass, antecubital area on the right, very tender. No crepitus. NEUROLOGICAL: Awake, alert and oriented x4. No focal neurologic deficits. Moving both upper and lower extremities spontaneously. A/P Problem List: (1) Sepsis ICD Code: A41.9 - Sepsis, unspecified organism (2) Right arm cellulitis ICD Code: L03.113 - Cellulitis of right upper limb Status: Acute (3) DVT (deep venous thrombosis) ICD Code: I82.409 - Acute embolism and thrombosis of unspecified deep veins of unspecified lower extremity (4) Drug intoxication ICD Code: F19.929 - Other psychoactive substance use, unspecified with intoxication, unspecified (5) IVDU (intravenous drug user) ICD Code: F19.90 - Other psychoactive substance use, unspecified, uncomplicated Assessment and Plan This is a 36-year-old male with history of IV drug abuse presenting with fever and right upper extremity cellulitis 4/abscess Sepsis secondary to possible right antecubital abscess with cellulitis- source is right arm cellulitis, likely with abscess. Blood culture negative to date. Follow up cultures, continue aztreonam and vancomycin. Awaiting cultures. Follow-up echocardiogram to rule out vegetation. Might need infectious disease consultation if positive blood culture/TTE. Consult hand surgery, patient would likely need debridement. DVT: Acute RUE DVT, Doppler w/ occlusive thrombus involving right cephalic vein extending from distal humerus/anterior cubital fossa, continue Lovenox. Pt very poor candidate for assisted anticoagulation due to IVDU, non- compliance and unlikely will follow up. Drug Intoxication: Acute drug intoxication, placed under Baxter Act by Police for pubic disruption and threatening bystanders, consulted Psych for further eval. Ativan prn. Caution with narcotics. IVDU: R/o Endocarditis in light of IVDU w/ acute sepsis, check Echo to eval for possible vegetation. Ativan prn for withdrawal. DVT Prophylaxis: Lovenox for acute DVT as above. Rimma Almaraz MD Apr 14, 2017 13:34
[2017-04-14] MEDS ORDERED: LIDOCAINE 1%/EPINEPHrine 1:100,000 SOLN 50 ML VIAL ONE (15:02)
[2017-04-14] MEDS ORDERED: LIDOCAINE 1%/EPINEPHrine 1:100,000 SOLN 50 ML VIAL INFIL SCH (15:15)
[2017-04-14 16:00] VITALS: BP 123/66; PULSE 79; RESP 20; TEMP 98.6; O2SAT 98
--- NOTE | 2017-04-14 17:57 | PD.CONS ---
History of Present Illness Service Hand Surgery Consult Requested By ED Reason for Consult R forearm abscess Primary Care Physician Unknown Diagnoses: History of Present Illness 36-year-old male with a PMH of Tobacco Abuse and IVDU brought to the ER by Police under Baxter Act secondary to drug intoxication and apparently threatening bystanders. Admits to ongoing IVDU, used Meth IV earlier today. Noted to have right arm cellulitis on exam, pt reports symptoms ongoing for approx 10 days. Very poor historian due to acute drug intoxication, history limited. On arrival, BP 130/91, HR 100, O2 sat 95% on RA, Temp 99.9. WBC normal however elevated neutrophil count. Platelets 128, producing 139 03/20/16. Chemistry essentially unremarkable. Acid normal. INR 1.0. UA negative. Urine Drug Screen positive for Amphetamines, Cocaine, Opiates and Marijuana. Alcohol negative. CXR with no evidence of pneumonia. RUE Doppler w/ occlusive thrombus of right cephalic vein extending from distal humerus/anterior decubital fossa to wrist. S/p Blood/Wound Cultures, Vanc/Zosyn in ER. Review of Systems Except as stated in HPI: all other systems reviewed are Neg ROS: Unable to obtain as patient large uncooperative with exam. Past Family Social History Past Medical History PMH: Tobacco Abuse and IVDU Past Surgical History PAST SURGICAL HISTORY: Laceration Repair Right Arm. Allergies: Coded Allergies: haloperidol (Verified Allergy, Severe, Tongue swelling, respiratory difficulty, 04/13/17) penicillin G (Unverified Allergy, Intermediate, SWELLING, HIVES, 10/28/16) Family History PAST FAMILY HISTORY: Reviewed. No h/o DM or CAD Social History PAST SOCIAL HISTORY: Occasional alcohol. Smokes 1ppd. IVDU +Amphetamines/ Opiates/Cocaine, +Marijuana. Review of Systems otherwise non contributory to presenting complaint Past Family Social History Allergies: Coded Allergies: haloperidol (Verified Allergy, Severe, Tongue swelling, respiratory difficulty, 04/13/17) penicillin G (Unverified Allergy, Intermediate, SWELLING, HIVES, 10/28/16) Physical Exam Vital Signs Vital Signs Date Time Temp Pulse Resp B/P (MAP) Pulse Ox O2 Delivery O2 Flow Rate FiO2 04/14/17 16:00 98.6 79 20 123/66 (85) 98 04/14/17 08:00 98.2 82 18 113/71 (85) 98 04/14/17 08:00 98.2 65 18 115/78 (90) 99 04/14/17 03:00 98.7 77 18 121/80 (94) 98 04/14/17 01:15 98.0 107 19 137/88 (104) 99 04/13/17 20:29 84 16 118/60 (79) 97 Room Air Physical Exam NAD A/Ox3 moist mucous membranes perrla neuro non focal skin without rash respirations non labored RUE proximal forearm w/ ~3cm abscess surrounding cellulititis Laboratory Laboratory Tests Test 04/14/17 03:20 White Blood Count 7.0 Red Blood Count 4.67 Hemoglobin 13.4 Hematocrit 38.2 Mean Corpuscular Volume 81.7 Mean Corpuscular Hemoglobin 28.6 Mean Corpuscular Hemoglobin Concent 35.1 Red Cell Distribution Width 12.7 Platelet Count 143 Mean Platelet Volume 9.0 Neutrophils (%) (Auto) 73.4 Lymphocytes (%) (Auto) 14.9 Monocytes (%) (Auto) 10.8 Eosinophils (%) (Auto) 0.7 Basophils (%) (Auto) 0.2 Neutrophils # (Auto) 5.2 Lymphocytes # (Auto) 1.0 Monocytes # (Auto) 0.8 Eosinophils # (Auto) 0.0 Basophils # (Auto) 0.0 CBC Comment DIFF FINAL Differential Comment Blood Urea Nitrogen 8 Creatinine 0.75 Random Glucose 98 Total Protein 6.7 Albumin 2.9 Calcium Level 8.1 Alkaline Phosphatase 97 Aspartate Amino Transf (AST/SGOT) 31 Alanine Aminotransferase (ALT/SGPT) 46 Total Bilirubin 0.8 Sodium Level 141 Potassium Level 3.7 Chloride Level 107 Carbon Dioxide Level 25.3 Anion Gap 9 Estimat Glomerular Filtration Rate 119 Date/Time Source Procedure Growth Status 04/13/17 17:23 Blood Peripheral Aerobic Blood Culture - Preliminary NO GROWTH IN 1 DAY Resulted 04/13/17 17:23 Blood Peripheral Anaerobic Blood Culture - Preliminary NO GROWTH IN 1 DAY Resulted Result Diagram: 04/14/17 0320 04/14/17 0320 Assessment and Plan Problem List: (1) Abscess of upper arm and forearm, right ICD Codes: L02.413 - Cutaneous abscess of right upper limb (2) Right arm cellulitis ICD Codes: L03.113 - Cellulitis of right upper limb Status: Acute Assessment and Plan 36M w/ R forearm abscess d/t IVDA R/B/A discussed w/ pt pt elects to assume the risks of I and D informed consent obtained procedure well tolerated ~4 mls pus expressed cxs taken packed w/ iodoform hemostatic wrapped iodoform packing to be changed by nursing q8 Jasper Lopez MD Apr 14, 2017 17:56
[2017-04-14] MEDS: LORazepam 2 MG/ML VIAL IV PUSH PRN (20:32)
[2017-04-14 21:10] VITALS: BP 118/73; PULSE 77; RESP 18; TEMP 98.1; O2SAT 97
[2017-04-15] VITALS (9 sets, daily range): BP systolic 110–143; BP diastolic 62–88; PULSE 59–92; RESP 18; TEMP 97.7–98.7; O2SAT 96–98
--- NOTE | 2017-04-15 00:55 | EKG ---
Date Performed: 04/13/2017 Time Performed: 17:31:29 PTAGE: 36 years EKG: Sinus rhythm WITH FREQUENT VENTRICULAR PREMATURE COMPLEXES ABNORMAL RHYTHM ECG PREVIOUS TRACING : 07/29/2015 10.16 Compared to prior tracing, PVCs now noted DOCTOR: Timothy Nichole Interpretating Date/Time 04/15/2017 00:53:58
[2017-04-15] MEDS: LORazepam 2 MG/ML VIAL IV PUSH PRN ×5 (01:57→23:24)
[2017-04-15] MEDS: AZTREONAM INJ 2,000 MG in SODIUM CHLORIDE 0.9% INJ 100 ML IV SCH ×2 (02:11→09:38)
[2017-04-15] MEDS ORDERED: PHARMACY ORDERED LAB ONE (03:45)
[2017-04-15] MEDS: VANCOMYCIN INJ 1,500 MG in SODIUM CHLORID 0.9% 500 ML INJ 500 ML IV SCH ×3 (04:22→20:56)
[2017-04-15 04:37] LABS: CREATININE 0.72 MG/DL (0.60-1.30)
[2017-04-15 04:38] LABS: VANCOMYCIN TROUGH 15.1 MCG/ML (5.0-10.0)
[2017-04-15] MEDS: SODIUM CHLOR 0.9% 1000 ML INJ 1,000 ML IV SCH ×2 (05:00→17:19)
[2017-04-15] MEDS: SODIUM CHLORIDE 0.9% FLUSH 10 ML FLUSH IV FLUSH SCH ×2 (09:00→21:00)
[2017-04-15] MEDS: DOCUSATE SODIUM 50 MG/SENNA 8.6 MG TAB PO SCH ×2 (09:00→21:00)
--- NOTE | 2017-04-15 10:26 | HHI.PR ---
Subjective Remarks Follow-up visit right arm cellulitis, status post I&D, IVDA. Patient seen and examined today lying in bed. Reports he is doing okay. States that he continues to have pain on the right upper arm especially aggravated with movement. States he was sweating overnight after being cold. Denies any abdominal pain or nausea, vomiting, diarrhea. Denies any shortness of breath or dyspnea. Objective Vitals Vital Signs Date Time Temp Pulse Resp B/P (MAP) Pulse Ox O2 Delivery O2 Flow Rate FiO2 04/15/17 08:29 98.0 60 18 120/77 (91) 97 04/15/17 03:53 98.3 64 18 110/66 (81) 96 04/15/17 00:04 98.4 83 18 118/65 (82) 96 04/14/17 21:10 98.1 77 18 118/73 (88) 97 04/14/17 16:00 98.6 79 20 123/66 (85) 98 I/O 04/14/17 04/14/17 04/14/17 04/15/17 04/15/17 04/15/17 07:00 15:00 23:00 07:00 15:00 23:00 Intake Total 220 ml 480 ml 240 ml Output Total 700 ml Balance -480 ml 480 ml 240 ml Intake Oral 120 ml 480 ml 240 ml IV Total 100 ml Output Urine Total 700 ml # Voids 0 2 # Bowel Movements 0 Result Diagram: 04/14/17 0320 04/15/17 0400 Imaging Last Impressions Chest X-Ray 04/13/17 1657 Signed Impressions: Service Date/Time: Thursday, April 13, 2017 17:03 - CONCLUSION: 1. Mild motion artifact with fullness in the right suprahilar region which may be artifactual. A followup standard 2 view chest x-ray is recommended. 2. No evidence of pneumonia. Kevin Rush MD Upper Extremity Ultrasound 04/13/17 0000 Signed Impressions: Service Date/Time: Thursday, April 13, 2017 19:41 - CONCLUSION: 1. Occlusive thrombus involving the right cephalic vein extending from the distal humerus/anterior cubital fossa to the wrist. 2. Diffuse edema without focal collection identified. Tomás Ferrell MD Objective Remarks GENERAL: This is a well-nourished, well-developed patient, in no apparent distress. SKIN: Warm and dry. HEENT: Normocephalic. Pupils equal round and reactive. Nose without bleeding. Airway patent. NECK: Trachea midline. CARDIOVASCULAR: Regular rate and rhythm without murmurs, gallops, or rubs. RESPIRATORY: Clear to auscultation. Breath sounds equal bilaterally. No wheezes , rales, or rhonchi. GASTROINTESTINAL: Abdomen soft, non-tender, nondistended. Bowel Sounds normoactive x4. MUSCULOSKELETAL: Extremities without clubbing, cyanosis. Right upper arm trace edema, erythema Ez wrap in place. NEUROLOGICAL: Awake and alert. Oriented to time, place, person. No focal neuro deficit. Moves all extremities. Normal speech. A/P Problem List: (1) Sepsis ICD Code: A41.9 - Sepsis, unspecified organism (2) Right arm cellulitis ICD Code: L03.113 - Cellulitis of right upper limb Status: Acute (3) DVT (deep venous thrombosis) ICD Code: I82.409 - Acute embolism and thrombosis of unspecified deep veins of unspecified lower extremity (4) Drug intoxication ICD Code: F19.929 - Other psychoactive substance use, unspecified with intoxication, unspecified (5) IVDU (intravenous drug user) ICD Code: F19.90 - Other psychoactive substance use, unspecified, uncomplicated Assessment and Plan Patient 36-year-old male with history of IV drug use who came to the hospital with fever and right upper extremity cellulitis, abscess. Right upper extremity cellulitis, abscess Sepsis - Blood cultures negative to date. Consult infectious disease blood cultures are positive. - Continue IV aztreonam and vancomycin. - Status post I&D by plastics. Wound care dressing as ordered. Follow up wound culture. Adjust antibiotics as needed. - Echocardiogram done today. Follow-up results. - Continue wound care dressing. - Will consult ID patient may benefit with Dalvance treatment. DVT, acute right upper extremity DVT - Doppler with occlusive thrombus involving right cephalic vein extending to the distal humerus/anterior cubital fossa, continue Lovenox. - Patient poor candidate for long-term anticoagulation secondary to drug use , noncompliance Drug intoxication IV drug use - Patient placed under Baxter act by police for public disruption and threatening bystanders - Psych consult for evaluation. Baxter acted lifted. Patient will like to go to [facility] on discharge. - Ativan when necessary. - Caution with narcotic use. IV drug use - Rule out endocarditis in light of IV drug use with acute sepsis. Check echo for vegetation. Follow-up cultures. DVT Lovenox Discharge Planning We'll follow up wound cultures for now. Consult ID for antibiotic use for outpatient. Lanie Willis Apr 15, 2017 10:26
[2017-04-15] MEDS: ENOXAPARIN SODIUM 100 MG/ML SYRINGE SQ SCH ×2 (12:01→21:16)
[2017-04-15] MEDS: NICOTINE 21 MG/24 HR PATCH T-DERMAL SCH (13:00)
--- NOTE | 2017-04-15 16:27 | ECHRPT ---
Indication: sepsis- endocarditis CONCLUSIONS Upper normal left ventricular size.Wall thickness is normal. The left ventricular systolic function is low normal with an estimated ejection fraction of 50%. No definite regional wall motion abnormalities. Trace to mild mitral valve regurgitation. There is trace tricuspid valve regurgitatio. BP: 115 / 78 HR: 65 Rhythm: MEASUREMENTS (Male / Female) Normal Values Technical Quality: 2D ECHO LV Diastolic Diameter PLAX 5.5 cm 4.2 - 5.9 / 3.9 - 5.3 cm LV Systolic Diameter PLAX 4.0 cm IVS Diastolic Thickness 1.0 cm 0.6 - 1.0 / 0.6 - 0.9 cm LVPW Diastolic Thickness 0.9 cm 0.6 - 1.0 / 0.6 - 0.9 cm LV Relative Wall Thickness 0.3 RV Internal Dim ED PLAX 1.9 cm LA Systolic Diameter LX 3.5 cm 3.0 - 4.0 / 2.7 - 3.8 cm M-MODE Aortic Root Diameter MM 4.2 cm AV Cusp Separation MM 2.7 cm DOPPLER Mitral E Point Velocity 62.7 cm/s Mitral A Point Velocity 40.5 cm/s Mitral E to A Ratio 1.5 TR Peak Velocity 191.0 cm/s TR Peak Gradient 14.6 mmHg FINDINGS LEFT VENTRICLE Upper normal left ventricular size.Wall thickness is normal. The left ventricular systolic function is low normal with an estimated ejection fraction of 50%. No definite regional wall motion abnormalities. RIGHT VENTRICLE Normal right ventricular size and systolic function. LEFT ATRIUM The left atrial size is normal. RIGHT ATRIUM The right atrial size is normal. ATRIAL SEPTUM Normal atrial septal thickness without atrial level shunting by limited color doppler interrogation. AORTA The aortic root and proximal ascending aorta are normal in size on limited imaging. MITRAL VALVE Trace to mild mitral valve regurgitation. AORTIC VALVE Trileaflet aortic valve. No aortic valve stenosis or regurgitation. TRICUSPID VALVE There is trace tricuspid valve regurgitation. PULMONARY VALVE The pulmonary valve is not well visualized. VESSELS The inferior vena cava is normal in size. PERICARDIUM No pericardial effusion. Brandon Smart MD (Electronically Signed) Final Date:15 April 2017 16:26
--- NOTE | 2017-04-15 16:41 | HHI.PR ---
Subjective Remarks Feeling much better Objective Vital Signs Date Time Temp Pulse Resp B/P (MAP) Pulse Ox O2 Delivery O2 Flow Rate FiO2 04/15/17 15:41 98.7 81 18 143/88 (106) 98 04/15/17 11:42 98.7 59 18 113/63 (80) 97 04/15/17 08:29 98.0 60 18 120/77 (91) 97 04/15/17 08:00 61 04/15/17 03:53 98.3 64 18 110/66 (81) 96 04/15/17 00:04 98.4 83 18 118/65 (82) 96 04/14/17 21:10 98.1 77 18 118/73 (88) 97 I/O 04/14/17 04/14/17 04/14/17 04/15/17 04/15/17 04/15/17 07:00 15:00 23:00 07:00 15:00 23:00 Intake Total 220 ml 480 ml 240 ml Output Total 700 ml Balance -480 ml 480 ml 240 ml Intake Oral 120 ml 480 ml 240 ml IV Total 100 ml Output Urine Total 700 ml # Voids 0 2 # Bowel Movements 0 R forearm abscess site much improved Cellulitis less Result Diagram: 04/14/17 0320 04/15/17 0400 Assessment and Plan Problem List: (1) Abscess of upper arm and forearm, right ICD Codes: L02.413 - Cutaneous abscess of right upper limb (2) Right arm cellulitis ICD Codes: L03.113 - Cellulitis of right upper limb Status: Acute Assessment and Plan 36M w/ R forearm abscess d/t IVDA iodoform packing to be changed by nursing q8 Abx per primary Please call with questions Jasper Lopez MD Apr 15, 2017 16:41
--- NOTE | 2017-04-15 17:23 | PD.ID.CON ---
History of Present Illness Service ID Consult Requested By ELMIRA Lewis Reason for Consult Evaluation and Mment of Right forearm abscess. Primary Care Physician Unknown Diagnoses: History of Present Illness is a 36 y/o CM with a PMH of Tobacco Abuse and IVDU brought to the ER by Police under Baxter Act secondary to drug intoxication and apparently threatening bystanders. Admits to ongoing IVDU, used Meth IV on day of admission. Noted to have right arm cellulitis on exam, pt reports symptoms ongoing for approx 10 days. On arrival, BP 130/91, HR 100, O2 sat 95% on RA, Temp 99.9. WBC normal however elevated neutrophil count. Platelets 128, producing 139 03/20/16. Chemistry essentially unremarkable. Acid normal. INR 1.0. UA negative. Urine Drug Screen positive for Amphetamines, Cocaine, Opiates and Marijuana. Alcohol negative. CXR with no evidence of pneumonia. RUE Doppler w/ occlusive thrombus of right cephalic vein extending from distal humerus/anterior decubital fossa to wrist. S/p Blood/Wound Cultures, Vanc/Zosyn in ER. ID consulted for antibiotic treatment options given non compliance, unreliability, right forearm abscess with Penicillin allergy Review of Systems ROS Limitations: Poor Historian Constitutional: DENIES: Diaphoretic episodes, Fatigue, Fever, Weight gain, Weight loss, Chills, Dizziness, Change in appetite, Night Sweats Endocrine: DENIES: Heat/cold intolerance, Polydipsia, Polyuria, Polyphagia Eyes: DENIES: Blurred vision, Diplopia, Eye inflammation, Eye pain, Vision loss , Photosensitivity, Double Vision Ears, nose, mouth, throat: DENIES: Tinnitus, Hearing loss, Vertigo, Nasal discharge, Oral lesions, Throat pain, Hoarseness, Ear Pain, Running Nose, Epistaxis, Sinus Pain, Toothache, Odynophagia Respiratory: DENIES: Apneas, Cough, Snoring, Wheezing, Hemoptysis, Sputum production, Shortness of breath Cardiovascular: DENIES: Chest pain, Palpitations, Syncope, Dyspnea on Exertion , PND, Lower Extremity Edema, Orthopnea, Claudication Gastrointestinal: DENIES: Abdominal pain, Black stools, Bloody stools, Constipation, Diarrhea, Nausea, Vomiting, Difficulty Swallowing, Anorexia Genitourinary: DENIES: Sexual dysfunction, Urinary frequency, Urinary incontinence, Urgency, Hematuria, Dysuria, Nocturia, Penile Discharge, Testicular Pain, Testicular Swelling Musculoskeletal: DENIES: Joint pain, Muscle aches, Stiffness, Joint Swelling, Back pain, Neck pain Integumentary: DENIES: Abnormal pigmentation, Nail changes, Pruritus, Rash Hematologic/lymphatic: DENIES: Bruising, Lymphadenopathy Immunologic/allergic: DENIES: Eczema, Urticaria Neurologic: DENIES: Abnormal gait, Headache, Localized weakness, Paresthesias, Seizures, Speech Problems, Tremor, Poor Balance Psychiatric: DENIES: Anxiety, Confusion, Mood changes, Depression, Hallucinations, Agitation, Suicidal Ideation, Homicidal Ideation, Delusions Except as stated in HPI: all other systems reviewed are Neg Past Family Social History Allergies: Coded Allergies: haloperidol (Verified Allergy, Severe, Tongue swelling, respiratory difficulty, 04/13/17) penicillin G (Unverified Allergy, Intermediate, SWELLING, HIVES, 10/28/16) Past Medical History Tobacco Abuse and IVDU. Past Surgical History Laceration Repair Right Arm. Reported Medications Reported Meds & Active Scripts Active Cleocin (Clindamycin HCl) 150 Mg Cap 300 Mg PO Q6H Active Ordered Medications Current Medications Medications (Trade) Dose Ordered Sig/Samra Route Start Time Stop Time Status Last Admin (Lovenox Inj) 90 mg Q12H SQ 04/13/17 23:00 04/15/17 12:01 Pharmacy Profile Note 0 ml @ 0 mls/hr UNSCH OTHER 04/13/17 23:00 Sodium Chloride 1,000 ml @ 100 mls/hr Q10H IV 04/13/17 23:00 04/14/17 09:00 (NS Flush) 2 ml UNSCH PRN IV FLUSH 04/13/17 23:00 (NS Flush) 2 ml BID IV FLUSH 04/14/17 09:00 04/14/17 09:17 (Zofran Inj) 4 mg Q6H PRN IVP 04/13/17 23:00 (Tylenol) 650 mg Q6H PRN PO 04/13/17 23:00 (Roxicodone) 10 mg Q4H PRN PO 04/13/17 23:00 04/15/17 09:42 (Roxicodone) 5 mg Q4H PRN PO 04/13/17 23:00 04/15/17 12:54 (Imelda-Colace) 1 tab BID PO 04/14/17 09:00 (Milk Of Magnesia Liq) 30 ml Q12H PRN PO 04/13/17 23:00 (Senokot) 17.2 mg Q12H PRN PO 04/13/17 23:00 (Dulcolax Supp) 10 mg DAILY PRN RECTAL 04/13/17 23:00 (Lactulose Liq) 30 ml DAILY PRN PO 04/13/17 23:00 (Ativan Inj) 1 mg Q2H PRN IV PUSH 04/13/17 23:00 04/15/17 12:36 Vancomycin HCl 1500 mg/Sodium Chloride 515 ml @ 250 mls/hr Q8H IV 04/14/17 04:00 04/15/17 12:00 (Habitrol 21 Mg Patch.24 Hr) 1 patch DAILY T-DERMAL 04/15/17 13:00 Miscellaneous Information 1 DAILY T-DERMAL 04/16/17 09:00 Family History reviewed and NC to current ID problems. Social History IVDA with meth Baxter acted Rest not reliable. Lives with family in [place]. Physical Exam Vital Signs Vital Signs Date Time Temp Pulse Resp B/P (MAP) Pulse Ox O2 Delivery O2 Flow Rate FiO2 04/15/17 15:41 98.7 81 18 143/88 (106) 98 04/15/17 11:42 98.7 59 18 113/63 (80) 97 04/15/17 08:29 98.0 60 18 120/77 (91) 97 04/15/17 08:00 61 04/15/17 03:53 98.3 64 18 110/66 (81) 96 04/15/17 00:04 98.4 83 18 118/65 (82) 96 04/14/17 21:10 98.1 77 18 118/73 (88) 97 Physical Exam GENERAL: This is a well-nourished, well-developed patient, in no apparent distress. SKIN: No rashes, ecchymoses or lesions. Cool and dry. HEAD: Atraumatic. Normocephalic. No temporal or scalp tenderness. EYES: Pupils equal round and reactive. Extraocular motions intact. No scleral icterus. No injection or drainage. ENT: Nose without bleeding, purulent drainage or septal hematoma. Throat without erythema, tonsillar hypertrophy or exudate. Uvula midline. Airway patent. NECK: Trachea midline. No JVD or lymphadenopathy. Supple, nontender, no meningeal signs. CARDIOVASCULAR: Regular rate and rhythm without murmurs, gallops, or rubs. RESPIRATORY: Clear to auscultation. Breath sounds equal bilaterally. No wheezes , rales, or rhonchi. GASTROINTESTINAL: Abdomen soft, non-tender, nondistended. No hepato-splenomegaly , or palpable masses. No guarding. MUSCULOSKELETAL: RUE with forearm area with induration, covered dressing patient deferred exam Will try in am. No erythema on forearm or hand or upper arm area. NEUROLOGICAL: Awake and alert. Cranial nerves II through XII intact. Motor and sensory grossly within normal limits. Five out of 5 muscle strength in all muscle groups. Normal speech. Psych cooperative IV line sites with no e.o infection. Laboratory Laboratory Tests Test 04/15/17 04:00 Creatinine 0.72 Estimat Glomerular Filtration Rate 125 Vancomycin Level Trough 15.1 Date/Time Source Procedure Growth Status 04/13/17 17:23 Blood Peripheral Aerobic Blood Culture - Preliminary NO GROWTH IN 2 DAYS Resulted 04/13/17 17:23 Blood Peripheral Anaerobic Blood Culture - Preliminary NO GROWTH IN 2 DAYS Resulted 04/14/17 17:45 Wound Arm Gram Stain - Final Resulted 04/14/17 17:45 Wound Arm Wound Culture - Preliminary NO GROWTH IN 24 HOURS. Resulted Result Diagram: 04/14/17 0320 04/15/17 0400 Imaging ECHO negative for vegetations. Last Impressions Chest X-Ray 04/13/17 1657 Signed Impressions: Service Date/Time: Thursday, April 13, 2017 17:03 - CONCLUSION: 1. Mild motion artifact with fullness in the right suprahilar region which may be artifactual. A followup standard 2 view chest x-ray is recommended. 2. No evidence of pneumonia. Kevin Rush MD Upper Extremity Ultrasound 04/13/17 0000 Signed Impressions: Service Date/Time: Thursday, April 13, 2017 19:41 - CONCLUSION: 1. Occlusive thrombus involving the right cephalic vein extending from the distal humerus/anterior cubital fossa to the wrist. 2. Diffuse edema without focal collection identified. Tomás Ferrell MD Assessment and Plan Assessment and Plan Right forearm abscess non responsive to oral clindamycin. IVDA Methamphetamine abuse Recs Continue Vanco IV DC Azactam IV Follow cultures Follow clinically. Will assess in am if candidate for Dalvance tom since concerned for compliance and reliability. d.w IT HELP DESK MANAGER Will follow in am. Lori Bailey MD Apr 15, 2017 17:23
[2017-04-16 00:05] VITALS: PULSE 64
[2017-04-16] MEDS: SODIUM CHLOR 0.9% 1000 ML INJ 1,000 ML IV SCH ×2 (01:23→11:00)
[2017-04-16] MEDS: LORazepam 2 MG/ML VIAL IV PUSH PRN ×4 (01:46→15:17)
[2017-04-16 03:24] VITALS: BP 114/68; PULSE 71; RESP 18; TEMP 97.9; O2SAT 97
[2017-04-16] MEDS: VANCOMYCIN INJ 1,500 MG in SODIUM CHLORID 0.9% 500 ML INJ 500 ML IV SCH ×2 (04:38→12:00)
[2017-04-16 07:55] LABS: CREATININE 0.74 MG/DL (0.60-1.30)
[2017-04-16 08:30] VITALS: PULSE 56
[2017-04-16] MEDS: SODIUM CHLORIDE 0.9% FLUSH 10 ML FLUSH IV FLUSH SCH (09:00)
[2017-04-16] MEDS: NICOTINE 21 MG/24 HR PATCH T-DERMAL SCH (09:00)
[2017-04-16] MEDS ORDERED: REMOVE OLD PATCH T-DERMAL SCH (09:00)
[2017-04-16] MEDS: DOCUSATE SODIUM 50 MG/SENNA 8.6 MG TAB PO SCH (09:00)
[2017-04-16] MEDS ORDERED: TRAM50TA PO (10:26)
[2017-04-16] MEDS ORDERED: NICO21DI25 T-DERMAL (10:26)
[2017-04-16] MEDS ORDERED: APIX5TAB PO (10:26)
--- NOTE | 2017-04-16 10:28 | HHI.PR ---
Subjective Remarks Follow-up visit right arm cellulitis, status post I&D, IVDA, right upper arm DVT. Patient seen and examined today lying in bed. Reports he is doing okay. States that he continues to have pain on the right upper arm especially aggravated with movement. States that the medication given to him is not relieving it because the pain is throbbing overnight. Otherwise, denies SOB/ dyspnea. Denies chest pain, palpitations, headaches, dizziness. Denies fevers, chills, n/v/d. Denies dysuria. Objective Vitals Vital Signs Date Time Temp Pulse Resp B/P (MAP) Pulse Ox O2 Delivery O2 Flow Rate FiO2 04/16/17 03:24 97.9 71 18 114/68 (83) 97 04/16/17 00:05 64 04/15/17 23:10 97.7 66 18 121/62 (81) 96 04/15/17 20:15 92 04/15/17 19:21 98.1 66 18 129/76 (93) 96 04/15/17 15:41 98.7 81 18 143/88 (106) 98 04/15/17 11:42 98.7 59 18 113/63 (80) 97 I/O 04/15/17 04/15/17 04/15/17 04/16/17 04/16/17 04/16/17 07:00 15:00 23:00 07:00 15:00 23:00 Intake Total 875 ml 1500 ml Balance 875 ml 1500 ml Intake Oral 875 ml 1500 ml # Voids 2 5 5 # Bowel Movements 4 Result Diagram: 04/14/17 0320 04/16/17 0620 Imaging Last Impressions Chest X-Ray 04/13/17 1657 Signed Impressions: Service Date/Time: Thursday, April 13, 2017 17:03 - CONCLUSION: 1. Mild motion artifact with fullness in the right suprahilar region which may be artifactual. A followup standard 2 view chest x-ray is recommended. 2. No evidence of pneumonia. Kevin Rush MD Upper Extremity Ultrasound 04/13/17 0000 Signed Impressions: Service Date/Time: Thursday, April 13, 2017 19:41 - CONCLUSION: 1. Occlusive thrombus involving the right cephalic vein extending from the distal humerus/anterior cubital fossa to the wrist. 2. Diffuse edema without focal collection identified. Tomás Ferrell MD Objective Remarks GENERAL: This is a well-nourished, well-developed patient, in no apparent distress. SKIN: Warm and dry. HEENT: Normocephalic. Pupils equal round and reactive. Nose without bleeding. Airway patent. NECK: Trachea midline. CARDIOVASCULAR: Regular rate and rhythm without murmurs, gallops, or rubs. RESPIRATORY: Clear to auscultation. Breath sounds equal bilaterally. No wheezes , rales, or rhonchi. GASTROINTESTINAL: Abdomen soft, non-tender, nondistended. Bowel Sounds normoactive x4. MUSCULOSKELETAL: Extremities without clubbing, cyanosis. Right upper arm +1 edema distal portion, decrease erythema NEUROLOGICAL: Awake and alert. Oriented to time, place, person. No focal neuro deficit. Moves all extremities. Normal speech. A/P Problem List: (1) Sepsis ICD Code: A41.9 - Sepsis, unspecified organism (2) Right arm cellulitis ICD Code: L03.113 - Cellulitis of right upper limb Status: Acute (3) DVT (deep venous thrombosis) ICD Code: I82.409 - Acute embolism and thrombosis of unspecified deep veins of unspecified lower extremity (4) Drug intoxication ICD Code: F19.929 - Other psychoactive substance use, unspecified with intoxication, unspecified (5) IVDU (intravenous drug user) ICD Code: F19.90 - Other psychoactive substance use, unspecified, uncomplicated Assessment and Plan Patient 36-year-old male with history of IV drug use who came to the hospital with fever and right upper extremity cellulitis, abscess. Right upper extremity cellulitis, abscess Sepsis - Blood cultures negative to date. - Continue IV aztreonam and vancomycin. - Status post I&D by plastics. Wound care dressing as ordered. Follow up wound culture. Adjust antibiotics as needed. - Echocardiogram done today. Follow-up results. - Continue wound care dressing. - Consulted ID patient may benefit with Dalvance treatment. DVT, acute right upper extremity DVT - Doppler with occlusive thrombus involving right cephalic vein extending to the distal humerus/anterior cubital fossa, continue Lovenox. - Lovenox full dose Switch to Apixaban 10mg x4 days, then apixaban 5mg BID - Discuss extensively with patient importance of medication compliance including dosing of apixaban, side effects and risk for bleeding. Verbalized understanding and states that he will comply. Drug intoxication IV drug use - Patient placed under Baxter act by police for public disruption and threatening bystanders - Psych consult for evaluation. Baxter acted lifted. Patient will like to go to [facility] on discharge. - Ativan when necessary. - Caution with narcotic use. IV drug use - Rule out endocarditis in light of IV drug use with acute sepsis. Check echo for vegetation. Follow-up cultures. DVT Lovenox Discharge Planning Pending discharge to outpatient infusion clinic if ID recommends. Lanie Willis Apr 16, 2017 10:28
[2017-04-16] MEDS ORDERED: SOLU250I IV PUSH (12:04)
[2017-04-16] MEDS ORDERED: DALB1SOL IV (12:04)
[2017-04-16] MEDS ORDERED: EPIN1INJ21 SQ (12:04)
[2017-04-16] MEDS ORDERED: EPIN1INJ21 IV PUSH (12:04)
--- NOTE | 2017-04-16 12:07 | HHI.FF ---
Infusion Therapy Location of Infusion Therapy: Ambulatory Infusion Therapy Order Patient Information Appointment Date: Apr 16, 2017 Patient Weight 80.8 kg Diagnosis: Diagnosis Cellulitis with abscess s/p drainage. Coded Allergies: haloperidol (Verified Allergy, Severe, Tongue swelling, respiratory difficulty, 04/13/17) penicillin G (Unverified Allergy, Intermediate, SWELLING, HIVES, 10/28/16) Administer Medication Dalbavancin (Dalvance) 1500 mg IV one time dose only in clinic. Start Treatment: Apr 16, 2017 Stop Treatment: Apr 16, 2017 Additional Information Venous access: Other (PIV) Additional Instructions [x] Peripheral flush and dressing changes per protocol [x] Implanted port and central line server: * Implanted port: 10 ml Normal Saline followed by 5 ml Heparin 100 units/ml Heparin flush after each use and monthly to maintain. [] May leave port accessed during therapy. [] May leave peripheral site accessed for duration of therapy. [x] If patient has SOB or respiratory distress, check oxygen saturation. If less than 90% or clinical signs of respiratory distress, administer oxygen at 2 L/min. via nasal cannula and notify physician. [x] Anaphylaxis/Reaction orders: * Stop infusion. * Keep IV line open with saline flush. * Notify physician. * Monitor vital signs every 15 minutes until symptoms resolve. * Check Oxygen saturation; Oxygen at 2 L/min. via nasal cannula if less than 90% or clinical signs of respiratory distress. * Administer diphenhydramine (Benadryl) 25 mg IV STAT, (unless patient has received as pre-med). May repeat once, if necessary. * Solu-Cortef 250 mg IVP over 30-60 seconds, use 100 mg vials for each dissolution. * Epinephrine (1mg/1 ml) 0.3 mg subcutaneously or IVP now with any signs of respiratory distress. * Check with physician for new additional pre-med orders if patient is re- challenged or re-treated. [x] May remove PICC line when treatment complete, after confirming with Physician. [x] If the patient is admitted to the hospital, the ED, or transferred via [facility] , complete transfer form including medication reconciliation order sheet. Laboratory Tests Additional Information To be administered only after Case Management gets approval for Dalvance from [employer] the manufacturing company. Call with abnormals, change in clinical condition or problems to: Lori Bailey MD Apr 16, 2017 12:07
--- NOTE | 2017-04-16 12:08 | HHI.PR ---
Addendum to Inpatient Note Addendum Reason: Additional Documentation Additional Information To be administered only after Case Management gets approval for Dalvance from [employer] the manufacturing company. RN or Relocation Manager to accompany patient to [facility]. Dasha KU. Will sign off please call back if any change in clinical condition or questions. Lori Bailey MD Apr 16, 2017 12:08
[2017-04-16 12:37] VITALS: PULSE 59
[2017-04-16 12:40] VITALS: BP 126/73; PULSE 57; RESP 20; TEMP 97.8; O2SAT 97
--- NOTE | 2017-04-16 12:48 | HHI.DS ---
Discharge Summary Admission Date Apr 13, 2017 at 23:07 Discharge Date: Apr 16, 2017 Admitting Diagnosis Sepsis, RUE Cellulitis (1) Sepsis ICD Code: A41.9 - Sepsis, unspecified organism (2) Right arm cellulitis ICD Code: L03.113 - Cellulitis of right upper limb Status: Acute (3) DVT (deep venous thrombosis) ICD Code: I82.409 - Acute embolism and thrombosis of unspecified deep veins of unspecified lower extremity (4) Drug intoxication ICD Code: F19.929 - Other psychoactive substance use, unspecified with intoxication, unspecified (5) IVDU (intravenous drug user) ICD Code: F19.90 - Other psychoactive substance use, unspecified, uncomplicated Procedures I&D of the RUE Brief History - From Admission This is a 36-year-old male with a PMH of Tobacco Abuse and IVDU brought to the ER by Police under [place] Act secondary to drug intoxication and apparently threatening bystanders. Admits to ongoing IVDU, used Meth IV earlier today. Noted to have right arm cellulitis on exam, pt reports symptoms ongoing for approx 10 days. Very poor historian due to acute drug intoxication, history limited. On arrival, BP 130/91, HR 100, O2 sat 95% on RA, Temp 99.9. WBC normal however elevated neutrophil count. Platelets 128, producing 139 03/20/16. Chemistry essentially unremarkable. Acid normal. INR 1.0. UA negative. Urine Drug Screen positive for Amphetamines, Cocaine, Opiates and Marijuana. Alcohol negative. CXR with no evidence of pneumonia. RUE Doppler w/ occlusive thrombus of right cephalic vein extending from distal humerus/anterior decubital fossa to wrist. S/p Blood/Wound Cultures, Vanc/Zosyn in ER. CBC/BMP: 04/14/17 0320 04/16/17 0620 Significant Findings Laboratory Tests Test 04/13/17 16:05 04/13/17 17:15 04/14/17 03:20 04/15/17 04:00 Urine Ketones TRACE mg/dL (NEG) Urine Bilirubin SMALL (NEG) Urine Urobilinogen GREATER THAN 12.0 MG/DL Urine Opiates Screen POS (NEG) Urine Amphetamines Screen POS (NEG) Urine Cocaine Screen POS (NEG) Urine Cannabinoids Screen POS (NEG) Red Blood Count 4.25 MIL/MM3 (4.50-5.90) Hemoglobin 12.5 GM/DL (13.0-17.0) Hematocrit 34.6 % (39.0-51.0) 38.2 % (39.0-51.0) Mean Corpuscular Hemoglobin Concent 36.2 % (32.0-36.0) Platelet Count 128 TH/MM3 (150-450) 143 TH/MM3 (150-450) Neutrophils (%) (Auto) 78.3 % (16.0-70.0) 73.4 % (16.0-70.0) Monocytes (%) (Auto) 9.9 % (0.0-8.0) 10.8 % (0.0-8.0) Lymphocytes # (Auto) 0.9 TH/MM3 (1.0-4.8) Neutrophils % (Manual) 81 % (16-70) Toxic Granulation 1+ (NORMAL) Platelet Estimate LOW (NORMAL) Albumin 3.3 GM/DL (3.4-5.0) 2.9 GM/DL (3.4-5.0) Calcium Level 8.2 MG/DL (8.5-10.1) 8.1 MG/DL (8.5-10.1) Aspartate Amino Transf (AST/SGOT) 40 U/L (15-37) Sodium Level 134 MEQ/L (136-145) Estimat Glomerular Filtration Rate 88 ML/MIN (>89) Thyroid Stimulating Hormone 3rd Gen 0.169 uIU/ML (0.358-3.740) Vancomycin Level Trough 15.1 MCG/ML (5.0-10.0) Test 04/16/17 06:20 PE at Discharge GENERAL: This is a well-nourished, well-developed patient, in no apparent distress. SKIN: Warm and dry. HEENT: Normocephalic. Pupils equal round and reactive. Nose without bleeding. Airway patent. NECK: Trachea midline. CARDIOVASCULAR: Regular rate and rhythm without murmurs, gallops, or rubs. RESPIRATORY: Clear to auscultation. Breath sounds equal bilaterally. No wheezes , rales, or rhonchi. GASTROINTESTINAL: Abdomen soft, non-tender, nondistended. Bowel Sounds normoactive x4. MUSCULOSKELETAL: Extremities without clubbing, cyanosis. Right upper arm +1 edema distal portion, decrease erythema NEUROLOGICAL: Awake and alert. Oriented to time, place, person. No focal neuro deficit. Moves all extremities. Normal speech. Pt update on day of discharge Follow-up visit right arm cellulitis, status post I&D, IVDA, right upper arm DVT. Patient seen and examined today lying in bed. Reports he is doing okay. States that he continues to have pain on the right upper arm especially aggravated with movement. States that the medication given to him is not relieving it because the pain is throbbing overnight. Otherwise, denies SOB/ dyspnea. Denies chest pain, palpitations, headaches, dizziness. Denies fevers, chills, n/v/d. Denies dysuria. Hospital Course Patient 36-year-old male with history of IV drug use who came to the hospital with fever and right upper extremity cellulitis, abscess. he was treated with IV aztreonam and vancomycin for right upper extremity cellulitis and abscess. He is status post I&D by Dr. rico or for plastics and wound care dressing has been done. Cultures were sent to the lab microbiology for the wound culture showed light mixed russ with no predominant morphology, heavy growth of normal skin russ and no one was isolated. Wound cultures with no growth in 24 hours. Blood cultures were sent with no growth in 3 days. Infectious disease has been consult and for the patient and has recommended to stop the aztreonam continue with vancomycin and recommends that patient should be discharged to infusion center for the Dalvance IV infusion. Case management will assist with medication acquisition. Patient is also found to have right upper extremity DVT which he was being treated with Lovenox. We'll switch over to Eliquis 10 mg twice a day 4 days then Eliquis 5 mg after. Discuss and explained with patient extensively this medication to be taken for 3 months. He agreed to take the medication and be compliant about it. Patient has met maximal benefits of hospitalization. Clinically stable for discharge to IV infusion center for Dalvance infusion. Follow-up with PCP [facility]. Wound care center follow-up for wound, arranged by case management. Pt Condition on Discharge: Stable Discharge Disposition: Discharge Home Discharge Time: > 30 minutes Discharge Instructions DIET: Follow Instructions for: As Tolerated, No Restrictions Activities you can perform: Regular-No Restrictions, See Additionl Instruction Other Activity Instructions: RUE elevation when at rest Follow up Referrals: PCP Follow-up - 1 Week Wound Care Clinic - Daily New Medications: Apixaban (Eliquis) 5 Mg Tab 5 MG PO BID for Blood Clot Prevention for 30 Days, #60 TAB 0 Refills Apixaban (Eliquis) 5 Mg Tab 10 MG PO BID for Blood Clot Prevention for 4 Days, #16 TAB 0 Refills Dalbavancin Inj (Dalvance Inj) 500 Mg Vial 1500 MG IV ONCE for cellulitis for 1 Day, #1 BAG 0 Refills Initial dose of two-dose regimen Epinephrine Inj (Epinephrine Inj) 1 Mg/Ml (1 Ml) Inj 0.3 MG IV PUSH ONCE PRN for ALLERGIC REACTION, #1 VIAL Epinephrine Inj (Epinephrine Inj) 1 Mg/Ml (1 Ml) Inj 0.3 MG SQ ONCE PRN for ALLERGIC REACTION, #1 VIAL Give with any signs of respiratory distress. Hydrocortisone Inj (Solu-Cortef Inj) 250 Mg/2 Ml Inj 250 MG IV PUSH ONCE PRN for ALLERGIC REACTION, #1 VIAL 0 Refills Give over 30-60 seconds. Tramadol (Tramadol) 50 Mg Tab 100 MG PO Q6H PRN for PAIN for 10 Days, #30 TAB 0 Refills Nicotine (Eq Nicotine) 21 Mg/24 Hour Dis 1 PATCH T-DERMAL DAILY for tobacco cessation, #30 PATCH Discontinued Medications: Clindamycin (Cleocin) 150 Mg Cap 300 MG PO Q6H for Infection, #80 Lanie Whittington Apr 16, 2017 12:48
--- NOTE | 2017-04-16 13:12 | HHI.DCPOC ---
Discharge Care Plan Diagnosis: (1) Abscess of upper arm and forearm, right (2) Polysubstance (excluding opioids) dependence (3) Acute deep vein thrombosis (DVT) of right upper extremity (4) Sepsis (5) Right arm cellulitis (6) IV drug abuse Your Health Problems Are: Incision/Drains Skin Breakdown Inflammation Swelling Bleeding Tendency Goals to Promote Your Health * To prevent worsening of your condition and complications * To maintain your health at the optimal level Directions to Meet Your Goals Take your medications as prescribed Follow your dietary instruction Follow activity as directed Keep your appointments as scheduled Take your immunizations and boosters as scheduled If your symptoms worsen call your PCP, if no PCP go to Urgent Care Center or Emergency Room Smoking is Dangerous to Your Health. Avoid second hand smoke Call the 24-hour hour crisis hotline for domestic abuse at Lanie Willis Apr 16, 2017 13:12
[2017-04-16] MEDS ORDERED: DALBAVANCIN 1,500 MG/D5W 500 ML IV ONE ×2 (14:15)
[2017-04-16] MEDS ORDERED: APIXABAN 5 MG TABLET PO SCH (21:00)
[2017-04-17] MEDS ORDERED: PHARMACY ORDERED LAB ONE (03:45)
== END 2017-04-16 15:55 | disposition home or self-care (01) | DRG 872 ==
LOC: NEPJ 15:17 → NEDA 23:07 → NEDH 04-14 03:24 → NEPGCP 04-14 14:57
PROVIDERS: ADMIT Hospitalist; ATTEND Hospitalist
PROC: 0H9DXZX Drainage of Right Lower Arm Skin, External Approach, Diagnostic (ICD-10-PCS; principal; 2017-04-14)
DX: A41.9 Sepsis, unspecified organism (principal); I82.611 Acute embolism and thrombosis of superficial veins of right upper extremity; L03.113 Cellulitis of right upper limb; L02.413 Cutaneous abscess of right upper limb; F17.210 Nicotine dependence, cigarettes, uncomplicated; R45.4 Irritability and anger; F15.220 Other stimulant dependence with intoxication, uncomplicated; Z88.0 Allergy status to penicillin; Z59.0 Homelessness
CPT/HCPCS: 71045; 76882; 80053; 80202; 80307; 81001; 82565; 83605; 84443; 85007; 85025; 85027; 85610; 85730; 87040; 87070; 87205; 93005; 93306; 96365; 96366; 96368; 96372; 96375; J1200; J1650; J2060; J3370; J7030; J7040; J7050

== ENCOUNTER 2017-08-06 08:20 | Emergency (ER) | payer SELFPAY ==
[~2017-08-06] VITALS: Ht 188 cm; Wt 82.0 kg
[~2017-08-06 08:20] MED LIST changes: +APIX5TAB PO; -CLIN150 PO; +NICO21DI25 T-DERMAL; +TRAM50TA PO
[2017-08-06 08:44] VITALS: BP 130/66; PULSE 78; RESP 16; O2SAT 96
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
[2017-08-06] MEDS ORDERED: SUBO8MIS SL (08:52)
[2017-08-06] MEDS ORDERED: SODIUM CHLORIDE 0.9% FLUSH 10 ML FLUSH IV FLUSH PRN (09:00)
[2017-08-06] MEDS ORDERED: NALOXONE HCL 2 MG/2 ML VIAL IV PUSH PRN (09:00)
[2017-08-06 09:08] VITALS: PULSE 74; RESP 18; O2SAT 100
[2017-08-06] MEDS ORDERED: NALOXONE HCL 0.4 MG/ML AMP IM PRN (09:15)
[2017-08-06 09:50] VITALS: PULSE 95; RESP 15; O2SAT 97
[2017-08-06 14:11] VITALS: BP 125/65; PULSE 85; RESP 16; O2SAT 97
== END 2017-08-06 15:20 | disposition home or self-care (01) ==
LOC: NEDAMB 08:20
DX: T50.991A Poisoning by other drugs, medicaments and biological substances, accidental (unintentional), initial encounter (principal); J45.909 Unspecified asthma, uncomplicated; Z88.0 Allergy status to penicillin; Z59.0 Homelessness; Z88.8 Allergy status to other drugs, medicaments and biological substances
CPT/HCPCS: 99283

== ENCOUNTER 2018-03-26 12:57 | Inpatient (IN) ==
[2018-03-26] MEDS ORDERED: Ketorolac Inj 30 MG/ML (IVP) Vial IV.PUSH ONE (13:34)
--- NOTE | 2018-03-26 13:39 | ED ---
HPI General Chief Complaint: Abdominal Pain Stated Complaint: abd pain Time Seen by Provider: 03/26/18 13:26 Source: patient Mode of arrival: ambulatory Limitations: no limitations History of Present Illness HPI narrative: 37-year-old male complains of abdominal pain. Patient states that the pain started yesterday. Patient states that he has decreased urine output and constipation for the past week. Patient was seen in emergency room last week for low back pain and sciatica. Patient was given prescription of prednisone and Flexeril. Patient states that he had persistent low back pain with radiation right leg despite taking the medication. Patient has history of past IV drug abuse. Patient denies any headache. Patient denies any chest pain or shortness of breath. Patient stated pain is sharp pain and cramping pain localized around the umbilical area and right lower quadrant of the abdomen. Patient denies any pain radiation. Patient denies any dysuria or frequency. Patient denies any fever chills. MD complaint: Reports abdominal pain Onset (ago): day(s) Pain Consistency: constant Location: Reports periumbilical and RLQ Severity: moderate Severity scale (1-10): 7 Quality: Reports cramping and sharp Migration to: Reports no migration Relieving factors: nothing Exacerbating factors: nothing Related Data Home Medications Medication Instructions Recorded Confirmed No Known Home Medications 03/26/18 03/26/18 Allergies Allergy/AdvReac Type Severity Reaction Status Date / Time haloperidol Allergy Severe Tongue Verified 03/19/18 17:53 swelling, respiratory difficulty penicillin G Allergy Intermediate SWELLING, Verified 03/19/18 17:53 HIVES Review of Systems ROS: all other systems reviewed are negative [facility] Medical History Medical History Patient denies medical problems (Acute) Patient denies medical problems (Acute) Surgical History Surgical History No history of previous surgery (Acute) Social History Social History Substance History: Past History Second Hand Smoke Exposure: Yes Smoking Status: Current every day smoker Tobacco Type: Cigarettes How Often Do You Have a Drink Containing Alcohol: Never Recent Travel in [facility] within the Last 8 Weeks: No Recent Out of Country Travel within the Last 8 Weeks: No Immunization History Tetanus Immunization: Unsure Exam Narrative Exam Narrative: GENERAL: Well-nourished, well-developed patient. SKIN: Focused skin assessment warm/dry. HEAD: Normocephalic. EYES: No scleral icterus. No injection or drainage. NECK: Supple, trachea midline. No JVD or lymphadenopathy. CARDIOVASCULAR: Regular rate and rhythm without murmurs, gallops, or rubs. RESPIRATORY: Breath sounds equal bilaterally. No accessory muscle use. GASTROINTESTINAL: Abdomen soft, nondistended. Patient has diffuse tenderness in the periumbilical area and right lower quadrant of the abdomen. Mild guarding noted. MUSCULOSKELETAL: No cyanosis, or edema. BACK: Nontender without obvious deformity. No CVA tenderness. Neurologic exam normal. Course Initial Documented Vital Signs Temperature 98.1 F 03/26/18 13:09 Pulse Rate 156 H 03/26/18 13:09 Respiratory Rate 20 03/26/18 13:09 Blood Pressure 127/66 03/26/18 13:09 Pulse Oximetry 92 L 03/26/18 13:09 Last Documented Vital Signs Temperature 98.1 F 03/26/18 13:09 Pulse Rate 84 03/26/18 15:39 Respiratory Rate 19 03/26/18 15:39 Blood Pressure 102/65 03/26/18 15:39 Pulse Oximetry 99 03/26/18 15:39 Sign Out Sign Out Data: Patient Sign Out occurred on 03/26/18 at 15:07. Patient's care was discussed, and care was transferred from Cristhian Farah to Filipe Richter MD. Sign Out Comment: Patient with periumbilical and right lower quadrant abdominal pain. Rule out appendicitis. CT abdominal pelvis pending. Patient signed out to Dr. Richter Last updated by Cristhian Farah MD at 03/26/18 15:06 Post-Handoff Eval: The patient is a 37-year-old male who was initially evaluated by the previous physician, Dr. Farah. The patient was signed out at [address] of the abdomen and pelvis pending. The patient apparently periumbilical to right lower quadrant abdominal pain, CT was pending to evaluate for appendicitis. The patient met sepsis criteria with a heart rate initially in the, white count 25.7 , therefore, blood culture and lactic acid were sent to lab. The patient was administered 1 L of IV fluids. CT of the abdomen and pelvis reveals right perinephric fluid, possible extravasation from obstruction. No obvious obstructing stone on the right. CT also reveals right lower lobe pneumonia/ pneumonia from splinting secondary to pain. The patient does have a history of IV drug abuse, is currently on Suboxone, has not used in 2-3 months. He does complain of some back pain with sciatica that is been ongoing for several weeks. Call was placed to urology as well as the on-call medical service for admission. The patient was covered with cefepime and Zithromax. I discussed the patient with Dr. Lewis, the on-call urologist, who will see the patient consultation. He recommends medical management currently. Medical Decision Making MDM Narrative Medical decision making narrative: 37-year-old male with abdominal pain, decrease in urine output and constipation. Normal saline solution 125 cc an hour. Toradol 30 mg IV. Medical Screen Exam Complete: Yes Emergency Medical Condition: Yes Differential Diagnosis Differential Diagnosis: Differential diagnosis including PUD, pancreatitis, cholecystitis, colitis, UTI, pyelonephritis, nephrolithiasis. Lab Data Result diagrams: 03/26/18 13:39 03/26/18 13:39 Lab Results 03/26/18 03/26/18 03/26/18 Range/Units 13:39 13:39 13:39 WBC 27.3 H (4.0-11.0) th/mm3 RBC 4.66 (4.50-5.90) mil/mm3 Hgb 13.8 (13.0-17.0) gm/dL Hct 40.3 (39.0-51.0) % MCV 86.5 (80.0-100.0) fL MCH 29.7 (27.0-34.0) pg MCHC 34.4 (32.0-36.0) % RDW 13.2 (11.6-17.2) % Plt Count 238 (150-450) th/mm3 MPV 8.6 (7.0-11.0) fL Prelim Diff (Auto) Manual diff required WBC Differential Manual diff final Seg Neuts % (Manual) 70 (16-70) % Band Neuts % (Manual) 23 H (0-6) % Lymphocytes % (Manual) 2 L (9-44) % Monocytes % (Manual) 4 (0-8) % Metamyelocytes % (Man) 1 (0-1) % Abs Neuts (Manual) 25.7 H (1.8-7.7) th/mm3 Differential Comment . Toxic Granulation 1+ H (None) Platelet Estimate Normal (Normal) Platelet Morphology Normal (Normal) RBC Morphology Normal (Normal) PT 10.2 (9.8-11.6) sec INR 1.0 Ratio APTT 30.1 (23.4-31.7) sec Sodium 133 L (136-145) meq/L Potassium 4.5 (3.5-5.1) meq/L Chloride 100 (98-107) meq/L Carbon Dioxide 24.6 (21.0-32.0) meq/L Anion Gap 8 (5-15) meq/L BUN 15 (7-18) mg/dL Creatinine 0.98 (0.60-1.30) mg/dL Estimated GFR 87 L (>89) mL/min Random Glucose 144 H (74-106) mg/dL Lactic Acid (0.4-2.0) mmol/L Calcium 9.1 (8.5-10.1) mg/dL Total Bilirubin 0.8 (0.2-1.0) mg/dL AST 42 H (15-37) U/L ALT 53 (12-78) U/L Alkaline Phosphatase 211 H (45-117) U/L Total Protein 8.0 (6.4-8.2) g/dL Albumin 2.8 L (3.4-5.0) g/dL Lipase 39 L (73-393) U/L Urine Color (Yellw/Straw) Urine Clarity (Clear) Urine pH (5.0-8.5) Ur Specific [place] (1.002-1.035) Urine Protein (Neg-Trace) mg/dL Urine Glucose (UA) (Negative) mg/dL Urine Ketones (Negative) mg/dL Urine Occult Blood (Negative) Urine Nitrate (Negative) Urine Bilirubin (Negative) Urine Urobilinogen (Less than 2) mg/dL Ur Leukocyte Esterase (Negative) Hyaline Casts (0-3) /lpf Micro UA Comment Ur Microscopic Review Urine Culture Comments 03/26/18 03/26/18 Range/Units 14:51 15:31 WBC (4.0-11.0) th/mm3 RBC (4.50-5.90) mil/mm3 Hgb (13.0-17.0) gm/dL Hct (39.0-51.0) % MCV (80.0-100.0) fL MCH (27.0-34.0) pg MCHC (32.0-36.0) % RDW (11.6-17.2) % Plt Count (150-450) th/mm3 MPV (7.0-11.0) fL Prelim Diff (Auto) WBC Differential Seg Neuts % (Manual) (16-70) % Band Neuts % (Manual) (0-6) % Lymphocytes % (Manual) (9-44) % Monocytes % (Manual) (0-8) % Metamyelocytes % (Man) (0-1) % Abs Neuts (Manual) (1.8-7.7) th/mm3 Differential Comment Toxic Granulation (None) Platelet Estimate (Normal) Platelet Morphology (Normal) RBC Morphology (Normal) PT (9.8-11.6) sec INR Ratio APTT (23.4-31.7) sec Sodium (136-145) meq/L Potassium (3.5-5.1) meq/L Chloride (98-107) meq/L Carbon Dioxide (21.0-32.0) meq/L Anion Gap (5-15) meq/L BUN (7-18) mg/dL Creatinine (0.60-1.30) mg/dL Estimated GFR (>89) mL/min Random Glucose (74-106) mg/dL Lactic Acid 0.8 (0.4-2.0) mmol/L Calcium (8.5-10.1) mg/dL Total Bilirubin (0.2-1.0) mg/dL AST (15-37) U/L ALT (12-78) U/L Alkaline Phosphatase (45-117) U/L Total Protein (6.4-8.2) g/dL Albumin (3.4-5.0) g/dL Lipase (73-393) U/L Urine Color Yellow (Yellw/Straw) Urine Clarity Hazy H (Clear) Urine pH 6.0 (5.0-8.5) Ur Specific [place] 1.025 (1.002-1.035) Urine Protein 30 H (Neg-Trace) mg/dL Urine Glucose (UA) Negative (Negative) mg/dL Urine Ketones Negative (Negative) mg/dL Urine Occult Blood Negative (Negative) Urine Nitrate Negative (Negative) Urine Bilirubin Negative (Negative) Urine Urobilinogen 2.0 H (Less than 2) mg/dL Ur Leukocyte Esterase Negative (Negative) Hyaline Casts 1 (0-3) /lpf Micro UA Comment Culture not ind Ur Microscopic Review Not Reportable Urine Culture Comments Culture not ind Imaging Data Radiologist's impression: Abdomen/Pelvis CT 03/26/18 13:34 CONCLUSION: 1. Extensive perinephric fluid is noted on the right suggestive of pyelosinus extravasation related to obstruction. Mild ureteropelvicaliectasis is also noted on the right. No definite calcified obstructing calculus is noted. The findings raise possibility of recently passed or noncalcified right distal ureteral stone. Clinical correlation is recommended. 2. Alveolar consolidation of the right lower lobe posteriorly raising the possibility of atelectasis and/or pneumonia. 3. Minimal scattered atelectatic changes within left lower lobe posteriorly. 4. Hepatosplenomegaly. 5. Right colon is distended and filled with fecal debris but no definite obstructing lesion is identified. 6. Cholelithiasis. 7. Cardiomegaly. 8. Mild degenerative changes and scoliosis of the thoracolumbar spine. Chest X-Ray 03/26/18 15:07 CONCLUSION: 1. Right basilar airspace consolidation which may reflect developing pneumonia or aspiration in the appropriate clinical setting. 2. Bibasilar atelectasis/scarring. Discharge Plan Discharge Disposition Patient Disposition: ED Admit(ED Internal Use Only) Discharge Details Diagnosis: Pneumonia, Sepsis, Perinephric fluid collection Physicians Team ED Provider: Filipe Richter Primary Care Provider: Primary Care Physici,Kathy Rxs /Orders / Referrals /Forms Prescriptions: No Action No Known Home Medications RF: 0 Status ED Status: Pending Admission
[2018-03-26] MEDS ORDERED: Sod Chloride 0.9% Inj 1,000 ML IV.CONT SCH (13:45)
[2018-03-26 14:21] LABS: Alanine Aminotransferase 53 U/L (12-78); Albumin 2.8 g/dL (3.4-5.0); Anion Gap 8 meq/L (5-15); Aspartate Aminotransferase 42 U/L (15-37); Blood Urea Nitrogen 15 mg/dL (7-18); Calcium 9.1 mg/dL (8.5-10.1); Carbon Dioxide 24.6 meq/L (21.0-32.0); Chloride 100 meq/L (98-107); Glomerular Filtration Rate 87 mL/min (>89); Glucose,Random 144 mg/dL (74-106); Lipase 39 U/L (73-393); Potassium 4.5 meq/L (3.5-5.1); Sodium 133 meq/L (136-145)
[2018-03-26 14:23] LABS: Hematocrit 40.3 % (39.0-51.0); Hemoglobin 13.8 gm/dL (13.0-17.0); Mean Corpuscular HGB Conc 34.4 % (32.0-36.0); Mean Corpuscular Hemoglobin 29.7 pg (27.0-34.0); Mean Corpuscular Volume 86.5 fL (80.0-100.0); Mean Platelet Volume 8.6 fL (7.0-11.0); Platelet Count 238 th/mm3 (150-450); Red Blood Count 4.66 mil/mm3 (4.50-5.90); Red Cell Distribution Width 13.2 % (11.6-17.2); White Blood Count 27.3 th/mm3 (4.0-11.0)
[2018-03-26 14:24] LABS: Alkaline Phosphatase 211 U/L (45-117)
[2018-03-26 14:54] LABS: Activated Partial Thrombo Time 30.1 sec (23.4-31.7); Prothrombin Time 10.2 sec (9.8-11.6)
[2018-03-26 15:04] LABS: Lymphocytes 2 % (9-44); Metamyelocytes 1 % (0-1); Monocytes 4 % (0-8)
[2018-03-26 15:05] LABS: Platelet Estimate Normal (Normal); Platelet Morphology Normal (Normal); RBC Morphology Normal (Normal); Toxic Granulation 1+
[2018-03-26] MEDS ORDERED: Sod Chloride 0.9% Inj 1,000 ML IV.SIG SCH (15:15)
[2018-03-26 15:16] LABS: Bilirubin,Urine Negative (Negative); Clarity,Urine Hazy (Clear); Glucose,Urine (UA) Negative (Negative); Hyaline Casts,Urine 1 /lpf (0-3); Leukocyte Esterase,Urine Negative (Negative); Nitrite,Urine Negative (Negative); Specific Gravity,Urine 1.025 (1.002-1.035)
[2018-03-26 15:19] LABS: Color,Urine Yellow (Yellw/Straw)
--- NOTE | 2018-03-26 15:55 | CT ---
EXAM DATE: 03/26/2018 3:42 PM EST AGE/SEX: 37 years / Male INDICATIONS: Right side abdominal pain for two days. Last bowel movement one week ago. CLINICAL DATA: This is the patient's initial encounter. Patient reports that signs and symptoms have been present for 2 days and indicates a pain score of 7/10. MEDICAL/SURGICAL HISTORY: None. None. ORAL CONTRAST: No oral contrast ingested. RADIATION DOSE: 9.38 CTDI (mGy) COMPARISON: No prior exams available for comparison. TECHNIQUE: Multiple contiguous axial images were obtained through the abdomen and pelvis following b olus infusion of 73 ml Omnipaque 350 (iohexol) nonionic water-soluble contrast as a single exam dos e. No oral contrast ingested. Using automated exposure control and adjustment of the mA and/or kV ac cording to patient size, radiation dose was kept as low as reasonably achievable to obtain optimal di agnostic quality images. DICOM format image data is available electronically for review and comparis on. FINDINGS: Lower Lungs: Alveolar consolidation is noted within the right lower lobe posteriorly consistent with atelectasis/or pneumonia. Minimal scattered atelectatic changes are noted within the left lower lobe. Small right pleural effusion and tiny left pleural effusion is noted. Cardiomegaly is noted. Liver: Hepatomegaly is noted. The liver has a homogeneous density without space-occupying lesion. The re is no dilation of the biliary tree. Multiple calcified gallstones are noted within the gallbladder lumen. The Spleen: Splenomegaly is noted. Pancreas: Unremarkable without mass or calcification. Kidneys: Extensive perinephric fluid is noted on the right just above pyelosinus extravasation relate d to obstruction. Mild ureteropelvicaliectasis is also noted on the right. No definite calcified obst ructing calculus is noted. The findings raise possibility of recently passed or noncalcified right di stal ureteral stone. Clinical correlation is recommended. The left kidney is unremarkable. Adrenal Glands: Unremarkable. Aorta: The aorta and proximal iliac vessels are grossly unremarkable without aneurysmal dilation. Bowel/Mesentery: The right colon is distended with fecal debris. No definite obstructing lesion is c onfirmed. Abdominal Wall: Intact. Retroperitoneum: No evidence of adenopathy in the retrocrural, para-aortic, or deep pelvic regions. Bladder: Contours are smooth. Reproductive Organs: No abnormal masses or calcifications seen. Inguinal: The inguinal region is unremarkable without evidence of adenopathy. Bony Structures: Mild degenerative changes and scoliosis of the thoracolumbar spine are noted.. CONCLUSION: 1. Extensive perinephric fluid is noted on the right suggestive of pyelosinus extravasation related to obstruction. Mild ureteropelvicaliectasis is also noted on the right. No definite calcified obstru cting calculus is noted. The findings raise possibility of recently passed or noncalcified right dist al ureteral stone. Clinical correlation is recommended. 2. Alveolar consolidation of the right lower lobe posteriorly raising the possibility of atelectasis and/or pneumonia. 3. Minimal scattered atelectatic changes within left lower lobe posteriorly. 4. Hepatosplenomegaly. 5. Right colon is distended and filled with fecal debris but no definite obstructing lesion is ident ified. 6. Cholelithiasis. 7. Cardiomegaly. 8. Mild degenerative changes and scoliosis of the thoracolumbar spine. Electronically signed by: Tomás Ferrell MD Board Certified Radiologist 03/26/2018 3:53 PM EST
--- NOTE | 2018-03-26 15:56 | XR ---
EXAM DATE: 03/26/2018 3:51 PM EST AGE/SEX: 37 years / Male INDICATIONS: Decreased oxygen saturation, shortness of breath. CLINICAL DATA: This is the patient's initial encounter. Patient reports that signs and symptoms have been present for 1 day and indicates a pain score of 0/10. MEDICAL/SURGICAL HISTORY: None. None. COMPARISON: [facility] [place], CT ABDOMEN & PELVIS W CONTRAST, 03/26/2018. . FINDINGS: Focal linear parenchymal opacities in the lung bases bilaterally, more prominently at the right lung base with associated mild airspace consolidation.. The cardiomediastinal contours are unremarkable. Osseous structures are intact. CONCLUSION: 1. Right basilar airspace consolidation which may reflect developing pneumonia or aspiration in the appropriate clinical setting. 2. Bibasilar atelectasis/scarring. Electronically signed by: Francesco Lynch MD Board Certified Radiologist 03/26/2018 3:54 PM EST
[2018-03-26] MEDS ORDERED: Azithromycin Inj 500 MG in Sodium Chlor 0.9% Inj 250 ML IV.SIG ONE (15:57)
[2018-03-26] MEDS ORDERED: Acetaminophen 325 MG Tablet PO PRN (16:51)
[2018-03-26] MEDS ORDERED: Bisacodyl 10 MG Supp RECTAL PRN (16:51)
--- NOTE | 2018-03-26 16:56 | P.HP ---
History of Present Illness Primary Care Physician: No Primary Care Physician Chief Complaint: abdominal pain History of Present Illness: 37-year-old male with history of Hepatitis C, prior IVDU (clean [id number]), now on Suboxone, current tobacco use, occasional marijuana use, presents with a 1 week history of low back pain now with radiation into the flank and abdomen. Patient was recently seen in the ER on 03/19/18 with low back pain; lumbar spine CT showed minimal Schmorl nodes formation without any significant compromise to the exiting nerve roots or the thecal sac; discharged with prescriptions for ibuprofen and Flexeril. Patient now presents 03/26/18 with continued diffuse right low back pain now with new radiation into the right flank, RLQ, and periumbilical regions, described as sharp/shocking 10/10 pains, worse with any movement or cough. He has been taking ibuprofen and flexeril with no relief. He has also tried heating pads without any relief. He denies fevers/chills but does report episodes of profuse diaphoresis. He reports nausea but no vomiting. He reports his last BM was 4-5 days ago described as small hard "rabbit santiago ". He has still been eating, but only 1-2 meals a day. He reports significant abdominal distention which is new for him. He reports urinary hesitancy and dysuria when straining to urinate. Denies any increased urinary frequency/ urgency. He does report nonproductive cough and shortness of breath and difficulty with deep inspiration secondary to the pain. He also reports significant generalized weakness and body aches which is unusual for him. Denies any specific chest pains. Denies any other medical complaints at this time. Review of Systems All other systems reviewed negative except as stated in HPI PMFSH - History History Provided By: Patient - Medical History Medical History: Medical History (Last Updated 03/26/18 @ 17:29 by Sandie Montoya) Cholelithiasis Hepatitis C - Surgical History Surgical History: Surgical History (Last Reviewed 03/26/18 @ 17:29 by Sandie Montoya) No history of previous surgery - Family History Family History: Family History (Last Updated 03/26/18 @ 17:29 by Sandie Montoya) Other Unknown family medical history - Social History I have reviewed the patient's Social History: Yes - Tobacco History Second Hand Smoke Exposure: Yes Tobacco Use In Past 30 Days: Yes Smoking Status: Current every day smoker Tobacco Type: Cigarettes Packs Per Day: 1.5 Years Smoked: 20 - Alcohol History How Often Do You Have a Drink Containing Alcohol: Never - Substance Use History Substance History: Active Abuse, Past History (prior IVDU with cocaine/opiates) - Substance Use Type Marijuana Status: Active (occcasional) Route Used: Inhalation - Travel History Recent Travel in the [place] Within the Last 8 Weeks: No Recent Travel Out of the Country Within the Last 8 Weeks: No - Immunization History Tetanus Immunization: Unsure Medications and Allergies Active Medications: Active Medications Sodium Chloride (Ns Inj) 1,000 mls @ 125 mls/hr IV.CONT .Q8H CONNIE Stop: 03/26/18 21:44 Last Admin: 03/26/18 14:01 Dose: 125 mls/hr Azithromycin 500 mg/ Sodium (Chloride) 250 mls @ 250 mls/hr IV.SIG ONCE ONE Stop: 03/26/18 16:56 Last Admin: 03/26/18 16:45 Dose: 250 mls/hr Allergies Allergy/AdvReac Type Severity Reaction Status Date / Time haloperidol Allergy Severe Tongue Verified 03/19/18 17:53 swelling, respiratory difficulty penicillin G Allergy Intermediate SWELLING, Verified 03/19/18 17:53 HIVES Home Medications Medication Instructions Recorded Confirmed Type No Known Home Medications 03/26/18 03/26/18 History Exam Vital signs: Vital Signs 03/26/18 13:09 03/26/18 15:39 03/26/18 16:50 Temperature 98.1 F Pulse Rate 156 H 84 84 Respiratory Rate 20 19 20 Blood Pressure 127/66 102/65 104/61 Pulse Oximetry 92 L 99 98 Intake & Output 03/25/18 03/26/18 03/26/18 18:59 06:59 18:59 Intake Total 100 / 100 Balance 100 / 100 Weight 92.986 kg Intake: IV 100 / 100 Maxipime Inj 1,000 MG In NS Inj 100 / 100 100 ML @ 200 mls/hr IV.SIG ONCE ONE Rx#:[id number] Narrative: GENERAL: Well-nourished, well-developed middle-aged male patient in [facility]. SKIN: Warm and dry. No rash. HEENT: Normocephalic. Atraumatic. Pupils equal and round. Mucous membranes pink and moist. NECK: Supple. Trachea midline. CARDIOVASCULAR: Regular rate and rhythm. No murmur appreciated. RESPIRATORY: No accessory muscle use. Clear to auscultation, although poor inspiratory effort secondary to pain. Breath sounds equal bilaterally. GASTROINTESTINAL: Abdomen firm, mildly distended, diffuse TTP throughout periumbilical and RLQ regions. Normoactive bowel sounds x4. MUSCULOSKELETAL: No obvious deformities. Extremities without clubbing, cyanosis , or edema. Positive right CVA tenderness. NEUROLOGICAL: Awake and alert. No obvious cranial nerve deficits. Moving all extremities spontaneously. Normal speech. PSYCHIATRIC: Appropriate mood and affect; insight and judgment normal. Results - Labs CBC & Chem 7: 03/26/18 13:39 03/26/18 13:39 Labs: Laboratory Results - last 24 hr 03/26/18 03/26/18 03/26/18 13:39 13:39 13:39 WBC 27.3 H RBC 4.66 Hgb 13.8 Hct 40.3 MCV 86.5 MCH 29.7 MCHC 34.4 RDW 13.2 Plt Count 238 MPV 8.6 Prelim Diff (Auto) Manual diff required WBC Differential Manual diff final Seg Neuts % (Manual) 70 Band Neuts % (Manual) 23 H Lymphocytes % (Manual) 2 L Monocytes % (Manual) 4 Metamyelocytes % (Man) 1 Abs Neuts (Manual) 25.7 H Differential Comment . Toxic Granulation 1+ H Platelet Estimate Normal Platelet Morphology Normal RBC Morphology Normal PT 10.2 INR 1.0 APTT 30.1 Sodium 133 L Potassium 4.5 Chloride 100 Carbon Dioxide 24.6 Anion Gap 8 BUN 15 Creatinine 0.98 Estimated GFR 87 L Random Glucose 144 H Lactic Acid Calcium 9.1 Total Bilirubin 0.8 AST 42 H ALT 53 Alkaline Phosphatase 211 H Total Protein 8.0 Albumin 2.8 L Lipase 39 L Urine Color Urine Clarity Urine pH Ur Specific [place] Urine Protein Urine Glucose (UA) Urine Ketones Urine Occult Blood Urine Nitrate Urine Bilirubin Urine Urobilinogen Ur Leukocyte Esterase Hyaline Casts Micro UA Comment Ur Microscopic Review Urine Culture Comments 03/26/18 03/26/18 14:51 15:31 WBC RBC Hgb Hct MCV MCH MCHC RDW Plt Count MPV Prelim Diff (Auto) WBC Differential Seg Neuts % (Manual) Band Neuts % (Manual) Lymphocytes % (Manual) Monocytes % (Manual) Metamyelocytes % (Man) Abs Neuts (Manual) Differential Comment Toxic Granulation Platelet Estimate Platelet Morphology RBC Morphology PT INR APTT Sodium Potassium Chloride Carbon Dioxide Anion Gap BUN Creatinine Estimated GFR Random Glucose Lactic Acid 0.8 Calcium Total Bilirubin AST ALT Alkaline Phosphatase Total Protein Albumin Lipase Urine Color Yellow Urine Clarity Hazy H Urine pH 6.0 Ur Specific [place] 1.025 Urine Protein 30 H Urine Glucose (UA) Negative Urine Ketones Negative Urine Occult Blood Negative Urine Nitrate Negative Urine Bilirubin Negative Urine Urobilinogen 2.0 H Ur Leukocyte Esterase Negative Hyaline Casts 1 Micro UA Comment Culture not ind Ur Microscopic Review Not Reportable Urine Culture Comments Culture not ind - Imaging Impressions Abdomen/Pelvis CT 03/26/18 13:34 CONCLUSION: 1. Extensive perinephric fluid is noted on the right suggestive of pyelosinus extravasation related to obstruction. Mild ureteropelvicaliectasis is also noted on the right. No definite calcified obstructing calculus is noted. The findings raise possibility of recently passed or noncalcified right distal ureteral stone. Clinical correlation is recommended. 2. Alveolar consolidation of the right lower lobe posteriorly raising the possibility of atelectasis and/or pneumonia. 3. Minimal scattered atelectatic changes within left lower lobe posteriorly. 4. Hepatosplenomegaly. 5. Right colon is distended and filled with fecal debris but no definite obstructing lesion is identified. 6. Cholelithiasis. 7. Cardiomegaly. 8. Mild degenerative changes and scoliosis of the thoracolumbar spine. Chest X-Ray 03/26/18 15:07 CONCLUSION: 1. Right basilar airspace consolidation which may reflect developing pneumonia or aspiration in the appropriate clinical setting. 2. Bibasilar atelectasis/scarring. Caprini VTE Risk Assessment Caprini VTE Risk Assessment: No/Low Risk (score <= 1) Caprini Risk Assessment Model: Point Value = 1 Point Value = 2 Point Value = 3 Point Value = 5 Age 41-60 Minor surgery BMI > 25 kg/m2 Swollen legs Varicose veins or History of unexplained or recurrent spontaneous Oral contraceptives or hormone replacement Sepsis (< 1 month) Serious lung disease, including pneumonia (< 1 month) Abnormal pulmonary function Acute myocardial infarction Congestive heart failure (< 1 month) History of inflammatory bowel disease Medical patient at bed rest Age 61-74 Arthroscopic surgery Major open surgery (> 45 min) Laparoscopic surgery (> 45 min) Malignancy Confined to bed (> 72 hours) Immobilizing plaster cast Central venous access Age >= 75 History of VTE Family history of VTE Factor V Leiden Prothrombin [id number] Lupus anticoagulant Anticardiolipin antibodies Elevated serum homocysteine Heparin-induced thrombocytopenia Other congenital or acquired thrombophilia Stroke (< 1 month) Elective arthroplasty Hip, pelvis, or leg fracture Acute spinal cord injury (< 1 month) Prophylaxis Regimen: Total Risk Factor Score Risk Level Prophylaxis Regimen 0-1 Low Early ambulation 2 Moderate Order ONE of the following: *Sequential Compression Device (SCD) *Heparin 5000 units SQ BID 3-4 Higher Order ONE of the following medications: *Heparin 5000 units SQ TID *Enoxaparin/Lovenox 40 mg SQ daily (WT < 150 kg, CrCl > 30 mL/min) *Enoxaparin/Lovenox 30 mg SQ daily (WT < 150 kg, CrCl > 10-29 mL/min) *Enoxaparin/Lovenox 30 mg SQ BID (WT < 150 kg, CrCl > 30 mL/min) AND/OR *Sequential Compression Device (SCD) 5 or more Highest Order ONE of the following medications: *Heparin 5000 units SQ TID (Preferred with Epidurals) *Enoxaparin/Lovenox 40 mg SQ daily (WT < 150 kg, CrCl > 30 mL/min) *Enoxaparin/Lovenox 30 mg SQ daily (WT < 150 kg, CrCl > 10-29 mL/min) *Enoxaparin/Lovenox 30 mg SQ BID (WT < 150 kg, CrCl > 30 mL/min) AND *Sequential Compression Device (SCD) Assessment and Plan - Plan 37-year-old male with history of Hepatitis C, prior IVDU (clean [id number]), now on Suboxone, current tobacco use, occasional marijuana use, presents with a 1 week history of low back pain now with worsening radiation into the flank and abdomen. Abdominal/flank pain: Acute, unclear etiology, possibly secondary to colonic distention/constipation vs possible passed nephrolithiasis vs cholelithiasis vs other -CT abdomen/pelvis reviewed, showed extensive perinephric fluid is noted on the right suggestive of pyelosinus extravasation related to obstruction. Mild ureteropelvicaliectasis is also noted on the right. No definite calcified obstructing calculus is noted. The findings raise possibility of recently passed or noncalcified right distal ureteral stone. Clinical correlation is recommended. Hepatosplenomegaly. Cholelithiasis. Right colon is distended and filled with fecal debris but no definite obstructing lesion is identified. -Labs reviewed, remarkable for WBC 27.3K, AST 42, ALT 53, Alk Phos 211, Lipase 39, UA unremarkable -Consult urology -Continue empiric IV Rocephin for now -Clear liquid diet, NPO after midnight -Give lactulose and stool softeners, monitor for BM -Supportive treatment with IVF, antiemetics, and pain control prn -Monitor for improvement SIRS: patient meets SIRS criteria with +leukocytosis WBC 27K, tachycardia HR 156 , unclear source. Lactic acid 0.8. -possible pneumonia seen on CXR and CT, however no significant purulent cough or fever -UA unremarkable -Blood cultures collected and pending -Continue to monitor CBC and vital signs Questionable Pneumonia: patient with dry nonproductive cough -CXR reviewed and shows Right basilar airspace consolidation which may reflect developing pneumonia or aspiration in the appropriate clinical setting. -CT abd/pelvis shows Alveolar consolidation of the right lower lobe posteriorly raising the possibility of atelectasis and/or pneumonia. -S/p IV Rocephin/Azithro in ED, however discussed with attending, not concerned for PNA, will continue IV Rocephin only for now Hepatitis C: reported by the patient -Check hepatitis profile -Monitor LFTs Tobacco Use: chronic, smokes 1.5PPD -will litigation counsel on cessation -nicotine patch Prior IVDU: patient reports recent IVDU 3 months ago -litigation counsel on cessation -limit narcotics -continue patient's suboxone once med rec updated DVT Prophylaxis: teds/SCDs; avoid chemical prophylaxis for now incase surgery is indicated Discussed Condition With: Patient, INSURANCE CLAIMS SUPERVISOR, Dr. Bellamy
[2018-03-26] MEDS: Sod Chloride 0.9% Inj 1,000 ML IV.CONT SCH (17:42)
[2018-03-26] MEDS: Ketorolac Inj 30 MG/ML (IVP) Vial IV.PUSH PRN ×2 (18:09→23:59)
[2018-03-26] MEDS: Acetaminophen/Codeine 300/30 MG Tablet PO PRN ×2 (18:09→22:11)
--- NOTE | 2018-03-26 18:47 | P.CONURO ---
History of Present Illness Service: [facility] Consult date: 03/26/18 Requesting Physician: Cristhian Farah Reason for Consult: Alan-nephric fluid, RT. Abd. pain, RT Primary Care Provider: No Primary Care Physician Chief Complaint: abdominal pain History of Present Illness: 1-2 day hx of abd. pain, mainly right side and alan-umbilical, assoc. with no BM for 4-5 days. Infrequent voiding urine with slow stream. Reports RUQ pains on deep inspiration (Pleuritic). CT scan: (personally reviewed) alan-nephric fluid RT side extending into sub- diaphragmatic area. Gall stones. RLL lung inflitrates. Kidneys WNL, no hydronephrosis, no ureteral stones seen. Urinary bladder has only a small volume of urine, not distended. Pt. is septic with elevated WBC 25,700, and elevated LFTs. UA is negative, no WBC, no RBC, neg nitrate. Kidney function WNL: BUN=15, CR=0.98, GFR=87 Review of Systems Gastrointestinal: Reports abdominal pain, Reports constipation PMFSH - History History Provided By: Patient, Medical Record - Medical History Medical History: Medical History (Last Updated 03/26/18 @ 17:29 by Sandie Montoya) Cholelithiasis Hepatitis C - Surgical History Surgical History: Surgical History (Last Reviewed 03/26/18 @ 17:29 by Sandie Montoya) No history of previous surgery - Family History Family History: Family History (Last Updated 03/26/18 @ 17:29 by Sandie Montoya) Other Unknown family medical history - Tobacco History Second Hand Smoke Exposure: Yes Tobacco Use In Past 30 Days: Yes Smoking Status: Current every day smoker Tobacco Type: Cigarettes Packs Per Day: 1.5 Years Smoked: 20 - Alcohol History How Often Do You Have a Drink Containing Alcohol: Never - Substance Use History Substance History: Active Abuse, Past History (prior IVDU with cocaine/opiates) - Substance Use Type Marijuana Status: Active (occcasional) Route Used: Inhalation - Travel History Recent Travel in the [place] Within the Last 8 Weeks: No Recent Travel Out of the Country Within the Last 8 Weeks: No - Immunization History Tetanus Immunization: Unsure Medications and Allergies Active Medications: Active Medications Acetaminophen (Tylenol) 650 mg PO Q4H PRN PRN Reason: Temp > 100.4 Acetaminophen/Codeine Phosphate (Tylenol W/Cod #3) 1 tab PO Q4H PRN PRN Reason: PAIN SCALE 1 TO 10 Last Admin: 03/26/18 18:09 Dose: 1 tab Al Hydroxide/Mg Hydroxide (Milk Of Magnesia Liq) 30 ml PO Q12H PRN PRN Reason: Mild Constipation Bisacodyl (Dulcolax Supp) 10 mg RECTAL DAILY PRN PRN Reason: SEVERE CONSITIPATION Sodium Chloride (Ns Inj) 1,000 mls @ 125 mls/hr IV.CONT .Q8H [facility] Stop: 03/26/18 21:44 Last Admin: 03/26/18 14:01 Dose: 125 mls/hr Ceftriaxone Sodium 1,000 mg/ (Sodium Chloride) 100 mls @ 200 mls/hr IV.SIG Q24H [facility] Sodium Chloride (Ns Inj) 1,000 mls @ 100 mls/hr IV.CONT .Q10H [facility] Last Admin: 03/26/18 17:42 Dose: 100 mls/hr Ketorolac Tromethamine (Toradol Inj) 15 mg IV.PUSH Q6H PRN PRN Reason: BREAKTHROUGH PAIN Stop: 03/31/18 16:57 Last Admin: 03/26/18 18:09 Dose: 15 mg Lactulose (Lactulose Liq) 30 ml PO DAILY PRN PRN Reason: SEVERE CONSITIPATION Nicotine (Habitrol 21 Mg Patch.24 Hr) 1 patch T-DERMAL DAILY [facility] Last Admin: 03/26/18 18:05 Dose: 1 patch Ondansetron HCl (Zofran Inj) 4 mg IV.PUSH Q6H PRN PRN Reason: NAUSEA OR VOMITING Patch Removal (Remove Old Patch) 1 each T-DERMAL HS [facility] Senna/Docusate Sodium (Alan-Colace) 2 tab PO BID [facility] Sennosides (Senokot) 17.2 mg PO Q12H PRN PRN Reason: Moderate Constipation Sodium Chloride (Ns Flush) 2 ml IV.FLUSH BID [facility] Sodium Chloride (Ns Flush) 2 ml IV.FLUSH PRN PRN PRN Reason: FLUSH AFTER USING IV ACCESS Allergies Allergy/AdvReac Type Severity Reaction Status Date / Time haloperidol Allergy Severe Tongue Verified 03/19/18 17:53 swelling, respiratory difficulty penicillin G Allergy Intermediate SWELLING, Verified 03/19/18 17:53 HIVES Home Medications Medication Instructions Recorded Confirmed Type No Known Home Medications 03/26/18 03/26/18 History Physical Exam Vital Signs - 24 hr 03/26/18 13:09 03/26/18 15:39 03/26/18 16:50 Temperature 98.1 F Pulse Rate 156 H 84 84 Respiratory Rate 20 19 20 Blood Pressure 127/66 102/65 104/61 Pulse Oximetry 92 L 99 98 Physical Exam: GENERAL: This is a well-nourished, well-developed patient, in apparent distress complaining of abd. pain. SKIN: No rashes, ecchymoses or lesions. Cool and dry. HEAD: Atraumatic. Normocephalic. No temporal or scalp tenderness. EYES: Pupils equal round and reactive. Extraocular motions intact. No scleral icterus. No injection or drainage. ENT: Nose without bleeding, purulent drainage or septal hematoma. Throat without erythema, tonsillar hypertrophy or exudate. Uvula midline. Airway patent. NECK: Trachea midline. No JVD or lymphadenopathy. Supple, nontender, no meningeal signs. CARDIOVASCULAR: Regular rate and rhythm without murmurs, gallops, or rubs. RESPIRATORY: Clear to auscultation. Breath sounds equal bilaterally. No wheezes , rales, or rhonchi. GASTROINTESTINAL: Abdomen tense,with significant guarding, diffusely "tender" to direct pressure, especially RT side, no rebound , nondistended. No hepato- splenomegaly, or palpable masses. RT flank tenderness to finger pressure. GENITOURINARY: Patient declines exam of external genitalia. MUSCULOSKELETAL: Extremities without clubbing, cyanosis, or edema. No joint tenderness, effusion, or edema noted. No calf tenderness. Negative Homans sign bilaterally. NEUROLOGICAL: Awake and alert. Cranial nerves II through XII intact. Motor and sensory grossly within normal limits. Five out of 5 muscle strength in all muscle groups. Normal speech. Lab results reviewed: Yes Laboratory Results - last 24 hr 03/26/18 03/26/18 03/26/18 13:39 13:39 13:39 WBC 27.3 H RBC 4.66 Hgb 13.8 Hct 40.3 MCV 86.5 MCH 29.7 MCHC 34.4 RDW 13.2 Plt Count 238 MPV 8.6 Prelim Diff (Auto) Manual diff required WBC Differential Manual diff final Seg Neuts % (Manual) 70 Band Neuts % (Manual) 23 H Lymphocytes % (Manual) 2 L Monocytes % (Manual) 4 Metamyelocytes % (Man) 1 Abs Neuts (Manual) 25.7 H Differential Comment . Toxic Granulation 1+ H Platelet Estimate Normal Platelet Morphology Normal RBC Morphology Normal PT 10.2 INR 1.0 APTT 30.1 Sodium 133 L Potassium 4.5 Chloride 100 Carbon Dioxide 24.6 Anion Gap 8 BUN 15 Creatinine 0.98 Estimated GFR 87 L Random Glucose 144 H Lactic Acid Calcium 9.1 Total Bilirubin 0.8 AST 42 H ALT 53 Alkaline Phosphatase 211 H Total Protein 8.0 Albumin 2.8 L Lipase 39 L Urine Color Urine Clarity Urine pH Ur Specific [place] Urine Protein Urine Glucose (UA) Urine Ketones Urine Occult Blood Urine Nitrate Urine Bilirubin Urine Urobilinogen Ur Leukocyte Esterase Hyaline Casts Micro UA Comment Ur Microscopic Review Urine Culture Comments 03/26/18 03/26/18 14:51 15:31 WBC RBC Hgb Hct MCV MCH MCHC RDW Plt Count MPV Prelim Diff (Auto) WBC Differential Seg Neuts % (Manual) Band Neuts % (Manual) Lymphocytes % (Manual) Monocytes % (Manual) Metamyelocytes % (Man) Abs Neuts (Manual) Differential Comment Toxic Granulation Platelet Estimate Platelet Morphology RBC Morphology PT INR APTT Sodium Potassium Chloride Carbon Dioxide Anion Gap BUN Creatinine Estimated GFR Random Glucose Lactic Acid 0.8 Calcium Total Bilirubin AST ALT Alkaline Phosphatase Total Protein Albumin Lipase Urine Color Yellow Urine Clarity Hazy H Urine pH 6.0 Ur Specific [place] 1.025 Urine Protein 30 H Urine Glucose (UA) Negative Urine Ketones Negative Urine Occult Blood Negative Urine Nitrate Negative Urine Bilirubin Negative Urine Urobilinogen 2.0 H Ur Leukocyte Esterase Negative Hyaline Casts 1 Micro UA Comment Culture not ind Ur Microscopic Review Not Reportable Urine Culture Comments Culture not ind Result Diagrams: 03/26/18 13:39 03/26/18 13:39 Personally reviewed images: Yes Imaging: ITS Impressions Abdomen/Pelvis CT 03/26/18 13:34 CONCLUSION: 1. Extensive perinephric fluid is noted on the right suggestive of pyelosinus extravasation related to obstruction. Mild ureteropelvicaliectasis is also noted on the right. No definite calcified obstructing calculus is noted. The findings raise possibility of recently passed or noncalcified right distal ureteral stone. Clinical correlation is recommended. 2. Alveolar consolidation of the right lower lobe posteriorly raising the possibility of atelectasis and/or pneumonia. 3. Minimal scattered atelectatic changes within left lower lobe posteriorly. 4. Hepatosplenomegaly. 5. Right colon is distended and filled with fecal debris but no definite obstructing lesion is identified. 6. Cholelithiasis. 7. Cardiomegaly. 8. Mild degenerative changes and scoliosis of the thoracolumbar spine. Chest X-Ray 03/26/18 15:07 CONCLUSION: 1. Right basilar airspace consolidation which may reflect developing pneumonia or aspiration in the appropriate clinical setting. 2. Bibasilar atelectasis/scarring. Assessment and Plan - Assessment (1) Pneumonia Code(s): J18.9 - Pneumonia, unspecified organism Status: Acute (2) Sepsis Code(s): A41.9 - Sepsis, unspecified organism Status: Acute (3) Perinephric fluid collection Code(s): N28.89 - Other specified disorders of kidney and ureter Status: Acute Current Visit: Yes - Plan Alan-nephric fluid is also sub-diaphragmatic and is of undetermined etiology. Could be assoc. with pneumonia (has pleuritic pains) , or gall stones. In view of otherwise normal kidneys, ureters, bladder, UA, and no urinary stones no Urological intervention is indicated. REC: Rx sepsis medically. Discussed Condition With: Patient, nurse, Dr. Richter. (1) Pneumonia Qualifiers: Pneumonia type: due to unspecified organism Laterality: right Lung location : lower lobe of lung Qualified Code(s): J18.1 - Lobar pneumonia, unspecified organism (2) Sepsis Qualifiers: Sepsis type: sepsis due to unspecified organism Qualified Code(s): A41.9 - Sepsis, unspecified organism
[2018-03-26 21:30] LABS: Hepatitits B Surface Antigen Nonreactive (Nonreactive)
[2018-03-26 22:04] LABS: Hepatitis A IgM Antibody Nonreactive (Nonreactive)
[2018-03-26] MEDS: Senna/Docusate Sodium 8.6/50 MG Tablet PO SCH (22:12)
[2018-03-27] MEDS: Acetaminophen/Codeine 300/30 MG Tablet PO PRN ×3 (01:57→18:32)
[2018-03-27] MEDS: Sod Chloride 0.9% Inj 1,000 ML IV.CONT SCH ×2 (03:45→11:59)
[2018-03-27] MEDS ORDERED: Aluminum/Magnesium/Simethacone Susp 30 ML UDC PO ONE (04:26)
[2018-03-27] MEDS: Ketorolac Inj 30 MG/ML (IVP) Vial IV.PUSH PRN ×3 (06:05→21:18)
[2018-03-27] MEDS ORDERED: Morphine Inj 4 MG/ML Vial IV.PUSH ONE (06:48)
[2018-03-27] MEDS: Senna/Docusate Sodium 8.6/50 MG Tablet PO SCH ×2 (08:37→21:18)
[2018-03-27 08:42] LABS: Baso % (Auto) 0.1 % (0.0-2.0); Eos # (Auto) 0.1 th/mm3 (0.0-0.4); Eos % (Auto) 0.6 % (0.0-4.0); Hemoglobin 12.2 gm/dL (13.0-17.0); Lymph # (Auto) 0.6 th/mm3 (1.0-4.8); Lymph % (Auto) 2.9 % (9.0-44.0); Mean Corpuscular HGB Conc 33.8 % (32.0-36.0); Mean Corpuscular Hemoglobin 29.4 pg (27.0-34.0); Mean Corpuscular Volume 86.8 fL (80.0-100.0); Mean Platelet Volume 8.5 fL (7.0-11.0); Mono # (Auto) 1.3 th/mm3 (0.0-0.9); Mono % (Auto) 6.6 % (0.0-8.0); Neut # (Auto) 17.4 th/mm3 (1.8-7.7); Neut % (Auto) 89.8 % (16.0-70.0); Platelet Count 197 th/mm3 (150-450); Red Blood Count 4.15 mil/mm3 (4.50-5.90); Red Cell Distribution Width 13.2 % (11.6-17.2); White Blood Count 19.3 th/mm3 (4.0-11.0)
[2018-03-27 09:06] LABS: Anion Gap 10 meq/L (5-15); Blood Urea Nitrogen 15 mg/dL (7-18); Calcium 8.2 mg/dL (8.5-10.1); Carbon Dioxide 23.8 meq/L (21.0-32.0); Chloride 100 meq/L (98-107); Glomerular Filtration Rate Greater Than 89 mL/min (>89); Glucose,Random 132 mg/dL (74-106); Potassium 3.8 meq/L (3.5-5.1); Sodium 134 meq/L (136-145)
--- NOTE | 2018-03-27 13:19 | P.PNIM ---
Subjective Interval history: Patient seen and evaluated splinted bedside. Patient reports that he has not had a bowel movement for approximately 8 days. Patient dilated by urology no urgent intervention noted. Patient alkaline phosphatase elevated will order right upper quadrant ultrasound. Patient reports that he does have a cough. Patient does report that he felt some small chills yesterday. Patient was found to have elevated white blood cell count which is slowly improving with antibiotic therapy. Blood cultures negative. Patient with left shift. Physical Exam Vital signs: Vital Signs 03/26/18 15:39 03/26/18 16:50 03/26/18 20:00 Temperature 97.8 F Pulse Rate 84 84 82 Respiratory Rate 19 20 18 Blood Pressure 102/65 104/61 123/67 Pulse Oximetry 99 98 95 03/27/18 00:00 03/27/18 04:00 03/27/18 08:00 Temperature 98.3 F 98 F 98 F Pulse Rate 103 H 87 75 Respiratory Rate 18 18 18 Blood Pressure 131/72 141/84 H 134/59 L Pulse Oximetry 92 L 91 L 98 03/27/18 12:44 Temperature Pulse Rate Respiratory Rate 18 Blood Pressure Pulse Oximetry Intake & Output 03/26/18 03/27/18 03/27/18 18:59 06:59 18:59 Intake Total 1350 / 1350 3345 / 3345 855 / 855 Balance 1350 / 1350 3345 / 3345 855 / 855 Weight 92.986 kg 94.1 kg Intake: IV 1350 / 1350 2245 / 2245 855 / 855 NS Inj 1,000 ML @ 100 mls/hr IV 2245 / 2245 755 / 755 .CONT .Q10H [facility] Rx#:[id number] Azithromycin Inj 500 MG In NS 250 / 250 Inj 250 ML @ 250 mls/hr IV.SIG ONCE ONE Rx#:[id number] Maxipime Inj 1,000 MG In NS Inj 100 / 100 100 ML @ 200 mls/hr IV.SIG ONCE ONE Rx#:[id number] NS Inj 1,000 ML @ 1000 mls/hr 1000 / 1000 IV.SIG BOLUS [facility] Rx#:[id number] Rocephin Inj 1,000 MG In NS Inj 100 / 100 100 ML @ 200 mls/hr IV.SIG Q24H [facility] Rx#:[id number] Oral 1100 / 1100 Other: # Voids 2 Date of Last Bowel Movement 03/22/18 03/22/18 Weight On Admission 94.1 kg General: No acute distress HEENT: EOMI, no tender submandibular lymph node respiratory: Decreased breath sound at the base of the lung bilaterally. No intercostal muscle use Cardiovascular: S1/S2. Gastroenterology: Soft, tenderness particularly in the epigastric region, no guarding or rebound. Positive bowel sounds Extremity: No lower extremity edema Results Labs CBC & Chem 7: 03/27/18 07:16 03/27/18 07:16 Labs: Microbiology 03/26/18 15:31 Blood - Peripheral Aerobic Blood Culture - Preliminary No growth in 1 day 03/26/18 15:31 Blood - Peripheral Anaerobic Blood Culture - Preliminary No growth in 1 day 03/26/18 15:39 Blood - Peripheral Aerobic Blood Culture - Preliminary No growth in 1 day 03/26/18 15:39 Blood - Peripheral Anaerobic Blood Culture - Preliminary No growth in 1 day Imaging Imaging: Impressions Abdomen/Pelvis CT 03/26/18 13:34 CONCLUSION: 1. Extensive perinephric fluid is noted on the right suggestive of pyelosinus extravasation related to obstruction. Mild ureteropelvicaliectasis is also noted on the right. No definite calcified obstructing calculus is noted. The findings raise possibility of recently passed or noncalcified right distal ureteral stone. Clinical correlation is recommended. 2. Alveolar consolidation of the right lower lobe posteriorly raising the possibility of atelectasis and/or pneumonia. 3. Minimal scattered atelectatic changes within left lower lobe posteriorly. 4. Hepatosplenomegaly. 5. Right colon is distended and filled with fecal debris but no definite obstructing lesion is identified. 6. Cholelithiasis. 7. Cardiomegaly. 8. Mild degenerative changes and scoliosis of the thoracolumbar spine. Chest X-Ray 03/26/18 15:07 CONCLUSION: 1. Right basilar airspace consolidation which may reflect developing pneumonia or aspiration in the appropriate clinical setting. 2. Bibasilar atelectasis/scarring. Assessment and Plan (1) Pneumonia: Code(s): J18.9 - Pneumonia, unspecified organism Status: Acute (2) Sepsis: Code(s): A41.9 - Sepsis, unspecified organism Status: Acute (3) Perinephric fluid collection: Code(s): N28.89 - Other specified disorders of kidney and ureter Status: Acute Onset Date: Unknown Plan Patient is a pleasant 37-year-old male with past medical history of hepatitis C and a former IV drug user who presents with worsening lower back pain found to have elevated leukocytosis with possible consolidation concerning for pneumonia. Patient also noted to have elevated alkaline phosphatase level. CT imaging noted to have perinephric fluid collection for which urology has evaluated with no further urologic workup at this time as it is not felt to be a primary urological process. Patient admitted for further medical management. Infectious disease: Community-acquired pneumonia Blood cultures follow-up Continue ceftriaxone and azithromycin Pro-calcitonin Right bibasilar airspace consolidation Incentive spirometry and out of bed - legionella/pneumococcal ag Gastroenterology: Abdominal pain -Exact etiology unclear at this time the patient reports that he has not had a bowel movement for almost 9 days at this point. We will do aggressive bowel regimen and monitor for any improvement. CT did show significant stool burden on the right side of the colon. right upper quadrant ultrasound to rule out stone formation -Aggressive bowel regimen Pain control Urology: Perinephric fluid completion Urology consulted and recommendations appreciated. Orthopedics: Schmorl node -CT lumbar spine reviewed from 03/19. Minimal node formation without any significant compromise to exiting nerve roots. If patient fails to improve with medical management will consider reimaging and neurosurgical evaluation. Psych: Prior IVDU - patient reports recent IVDU 3 months ago -counselor aide on cessation -limit narcotics - suboxone once dose confirmed. CODE STATUS: Full code DVT prophylaxis Disposition: Medical surgery unit Progress Note: Quality VTE Deep Vein Thrombosis/Pulmonary Embolism Present on Admission: No _ (1) Pneumonia Qualifiers: Aspiration pneumonia type: Laterality: right Lung location: lower lobe of lung Pneumonia type: due to unspecified organism Qualified Code(s): J18.1 - Lobar pneumonia, unspecified organism (2) Sepsis Qualifiers: Sepsis type: sepsis due to unspecified organism Qualified Code(s): A41.9 - Sepsis, unspecified organism
[2018-03-27] MEDS: Docusate Sodium 100 MG Capsule PO SCH ×2 (13:48→21:18)
[2018-03-27] MEDS: Azithromycin Inj 250 MG in Sodium Chlor 0.9% Inj 250 ML IV.SIG SCH (18:28)
[2018-03-28] MEDS: Acetaminophen/Codeine 300/30 MG Tablet PO PRN ×4 (03:20→21:29)
[2018-03-28] MEDS: Ketorolac Inj 30 MG/ML (IVP) Vial IV.PUSH PRN ×2 (05:21→12:11)
--- NOTE | 2018-03-28 08:40 | US ---
EXAM DATE: 03/28/2018 8:23 AM EST AGE/SEX: 37 years / Male INDICATIONS: Abdominal pain. CLINICAL DATA: This is the patient's initial encounter. Patient reports that signs and symptoms have been present for 4 - 6 days and indicates a pain score of 5/10. MEDICAL/SURGICAL HISTORY: Hepatitis C. Cholelithiasis. None. [place] [facility] [place]. . MEASUREMENTS: Liver:__ 20.4 cm. Common Bile Duct:__ 5mm. Right Kidney:__ 13.1 x 5.7 x 6.3 cm. FINDINGS: Liver: The liver is mildly enlarged without evidence of concerning mass or biliary obstruction. Cherry l echogenicity. Portal Vein: Hepatopedal flow seen in portal vein. Common Duct: No intraluminal mass or stone visualized. Gallbladder: Multiple mobile stones are identified within the lumen of the gallbladder with the larg est measuring up to 2 cm in size. No abnormal wall thickening. Pancreas: There is mild prominence of the pancreatic duct measuring 2 mm. The imaged portion of the p ancreas is otherwise normal. Right Kidney: There is free fluid in Morison's pouch and edematous changes of the perinephric fat. T he renal cortex is normal in thickness and echogenicity. No evidence of hydronephrosis. No evidence o f stones or mass. Other: There is splenomegaly present with the spleen measuring 15.7 cm in length. There is a small a mount of free fluid seen adjacent to the spleen. CONCLUSION: 1. Mild hepatosplenomegaly. 2. Cholelithiasis. No evidence of cholecystitis. 3. Free fluid identified within Morison's pouch and adjacent to the spleen with edematous changes of the right perinephric fat. No evidence of hydronephrosis. Electronically signed by: Lidya De La Paz MD Board Certified Radiologist 03/28/2018 8:38 AM EST
[2018-03-28] MEDS: Docusate Sodium 100 MG Capsule PO SCH ×2 (09:42→21:30)
[2018-03-28] MEDS: Senna/Docusate Sodium 8.6/50 MG Tablet PO SCH ×2 (09:42→21:30)
[2018-03-28] MEDS: Polyethylene Glycol 3350 17 GM Packet PO SCH (09:42)
[2018-03-28 10:45] LABS: Hematocrit 40.9 % (39.0-51.0); Hemoglobin 13.7 gm/dL (13.0-17.0); Mean Corpuscular HGB Conc 33.6 % (32.0-36.0); Mean Corpuscular Hemoglobin 29.3 pg (27.0-34.0); Mean Corpuscular Volume 87.1 fL (80.0-100.0); Mean Platelet Volume 8.2 fL (7.0-11.0); Platelet Count 227 th/mm3 (150-450); Red Blood Count 4.69 mil/mm3 (4.50-5.90); Red Cell Distribution Width 13.1 % (11.6-17.2); White Blood Count 14.7 th/mm3 (4.0-11.0)
--- NOTE | 2018-03-28 12:35 | P.PNIM ---
Subjective Interval history: Patient seen and evaluated splinted bedside Patient denied subjective fever chills this morning but says he felt a little sweaty this morning continues to have pain located primarily on the right side Patient reports that this morning was the first time that he is been able to get up and ambulate but does still feel pain Patient right upper quadrant sono does not show any evidence of cholecystitis on the right side Patient has not had a bowel movement despite lactulose, senna, Colace, and recent addition of MiraLAX this morning White blood cell count continues to improve with antibiotics Physical Exam Vital signs: Vital Signs 03/27/18 12:44 03/27/18 15:16 03/27/18 16:00 Temperature 97 F L Pulse Rate 101 H Respiratory Rate 18 18 18 Blood Pressure 134/76 Pulse Oximetry 98 03/27/18 20:00 03/28/18 00:00 03/28/18 04:00 Temperature 98.0 F 98.2 F 97.5 F L Pulse Rate 87 83 75 Respiratory Rate 17 20 17 Blood Pressure 140/87 140/74 153/90 H Pulse Oximetry 96 92 L 96 03/28/18 08:00 Temperature 98.2 F Pulse Rate 82 Respiratory Rate 20 Blood Pressure 140/89 Pulse Oximetry 95 Intake & Output 03/27/18 03/28/18 03/28/18 18:59 06:59 18:59 Intake Total 2014 810 / 810 100 / 100 Output Total 1500 / 1500 300 / 300 Balance 515 / 515 510 / 510 100 / 100 Weight 94.1 kg Intake: IV 1055 / 1055 450 / 450 100 / 100 NS Inj 1,000 ML @ 100 mls/hr IV 955 / 955 .CONT .Q10H CONNIE Rx#:[id number] Ofirmev Inj 1,000 mg In 100 ml 200 / 200 @ 400 mls/hr IV.SIG Q6H PRN Rx# :[id number] Azithromycin Inj 250 MG In NS 250 / 250 Inj 250 ML @ 250 mls/hr IV.SIG Q24H CONNIE Rx#:[id number] Rocephin Inj 1,000 MG In NS Inj 100 / 100 100 / 100 100 ML @ 200 mls/hr IV.SIG Q24H CONNIE Rx#:[id number] Oral 960 / 960 360 / 360 Output: Urine 1500 / 1500 300 / 300 Other: Date of Last Bowel Movement 03/22/18 03/26/18 03/26/18 # Bowel Movements 0 0 general: No acute distress, conversational Cardiovascular: S1/S2 Respiratory: Decreased breath sounds at the base of the lung bilaterally no intercostal muscle use Gastroenterology: Abdominal fullness with some tenderness in epigastric region no guarding or rebound. Positive bowel sounds Extremities: No lower extremity edema Results Labs CBC & Chem 7: 03/28/18 10:15 03/27/18 07:16 Labs: Microbiology 03/26/18 15:31 Blood - Peripheral Aerobic Blood Culture - Preliminary No growth in 2 days 03/26/18 15:31 Blood - Peripheral Anaerobic Blood Culture - Preliminary No growth in 2 days 03/26/18 15:39 Blood - Peripheral Aerobic Blood Culture - Preliminary No growth in 2 days 03/26/18 15:39 Blood - Peripheral Anaerobic Blood Culture - Preliminary No growth in 2 days 03/27/18 19:30 Urine - Random Urine Streptococcus pneumoniae Antigen (M - Final Presumptive negative for streptococcus pneumoniae antigen, suggesting no current or recent infection. Infection due to Streptococcus pneumoniae cannot be ruled out since the antigen present in the sample may be below the detection limit of the test. 03/27/18 19:30 Urine - Random Urine Legionella Antigen - Final Presumptive negative for Legionella pneumophila serogroup 1 antigen in urine, suggesting no recent or recurrent infection. Infection due to Legionella cannot be ruled out since other serogroups and species may cause disease, antigen may not be present in urine in early infection, and the level of antigen present in the urine may be below the detection limit of the test. Imaging Imaging: Impressions Liver Ultrasound 03/28/18 00:00 CONCLUSION: 1. Mild hepatosplenomegaly. 2. Cholelithiasis. No evidence of cholecystitis. 3. Free fluid identified within Morison's pouch and adjacent to the spleen with edematous changes of the right perinephric fat. No evidence of hydronephrosis. Assessment and Plan (1) Pneumonia: Code(s): J18.9 - Pneumonia, unspecified organism Status: Acute (2) Sepsis: Code(s): A41.9 - Sepsis, unspecified organism Status: Acute (3) Perinephric fluid collection: Code(s): N28.89 - Other specified disorders of kidney and ureter Status: Acute Onset Date: Unknown Plan Patient is a pleasant 37-year-old male with past medical history of hepatitis C and a former IV drug user who presents with worsening lower back pain found to have elevated leukocytosis with possible consolidation concerning for pneumonia. Patient also noted to have elevated alkaline phosphatase level. CT imaging noted to have perinephric fluid collection for which urology has evaluated with no further urologic workup at this time as it is not felt to be a primary urological process. Patient admitted for further medical management. Infectious disease: Community-acquired pneumonia Blood cultures follow-up Continue ceftriaxone and azithromycin Pro-calcitonin- PENDING Right bibasilar airspace consolidation Incentive spirometry and out of bed - legionella/pneumococcal ag - negative Gastroenterology: Abdominal pain -Exact etiology unclear at this time the patient reports that he has not had a bowel movement for almost 9 days at this point. We will do aggressive bowel regimen and monitor for any improvement. CT did show significant stool burden on the right side of the colon. right upper quadrant ultrasound - no emilia -Aggressive bowel regimen Pain control Urology: Perinephric fluid completion Urology consulted and recommendations appreciated. Orthopedics: Schmorl node -CT lumbar spine reviewed from 03/19. Minimal node formation without any significant compromise to exiting nerve roots. If patient fails to improve with medical management will consider re-imaging and neurosurgical evaluation. Psych: Prior IVDU - patient reports recent IVDU 3 months ago -staff counsel on cessation -limit narcotics - suboxone once dose confirmed. continue 8-2 BID CODE STATUS: Full code DVT prophylaxis Disposition: Medical surgery unit Progress Note: Quality VTE Deep Vein Thrombosis/Pulmonary Embolism Present on Admission: No _ (1) Pneumonia Qualifiers: Aspiration pneumonia type: Laterality: right Lung location: lower lobe of lung Pneumonia type: due to unspecified organism Qualified Code(s): J18.1 - Lobar pneumonia, unspecified organism (2) Sepsis Qualifiers: Sepsis type: sepsis due to unspecified organism Qualified Code(s): A41.9 - Sepsis, unspecified organism
[2018-03-28 12:37] LABS: Anion Gap 13 meq/L (5-15); Blood Urea Nitrogen 11 mg/dL (7-18); Calcium 7.6 mg/dL (8.5-10.1); Carbon Dioxide 16.7 meq/L (21.0-32.0); Chloride 103 meq/L (98-107); Glomerular Filtration Rate Greater Than 89 mL/min (>89); Glucose,Random 128 mg/dL (74-106); Magnesium 2.3 mg/dL (1.5-2.5); Potassium 4.6 meq/L (3.5-5.1); Sodium 133 meq/L (136-145)
[2018-03-28] MEDS: Buprenorphine/Naloxone 8/2 MG Sublingual Tablet SL SCH ×2 (14:31→21:29)
[2018-03-28] MEDS ORDERED: Ibuprofen 600 MG Tablet PO PRN (16:47)
[2018-03-28] MEDS ORDERED: Benzonatate 100 MG Capsule PO ONE (16:54)
[2018-03-28] MEDS ORDERED: Benzonatate 100 MG Capsule PO PRN (16:54)
[2018-03-28] MEDS: Azithromycin Inj 250 MG in Sodium Chlor 0.9% Inj 250 ML IV.SIG SCH (18:23)
[2018-03-29] MEDS: Acetaminophen/Codeine 300/30 MG Tablet PO PRN ×4 (01:28→14:39)
[2018-03-29 08:23] LABS: Hematocrit 37.5 % (39.0-51.0); Hemoglobin 13.2 gm/dL (13.0-17.0); Mean Corpuscular HGB Conc 35.2 % (32.0-36.0); Mean Corpuscular Hemoglobin 29.8 pg (27.0-34.0); Mean Corpuscular Volume 84.7 fL (80.0-100.0); Mean Platelet Volume 7.5 fL (7.0-11.0); Platelet Count 234 th/mm3 (150-450); Red Blood Count 4.43 mil/mm3 (4.50-5.90); Red Cell Distribution Width 13.3 % (11.6-17.2); White Blood Count 12.1 th/mm3 (4.0-11.0)
[2018-03-29 08:44] LABS: Anion Gap 7 meq/L (5-15); Blood Urea Nitrogen 12 mg/dL (7-18); Calcium 8.4 mg/dL (8.5-10.1); Carbon Dioxide 24.9 meq/L (21.0-32.0); Chloride 105 meq/L (98-107); Glomerular Filtration Rate Greater Than 89 mL/min (>89); Glucose,Random 108 mg/dL (74-106); Magnesium 2.6 mg/dL (1.5-2.5); Potassium 4.2 meq/L (3.5-5.1); Sodium 137 meq/L (136-145)
[2018-03-29] MEDS: Docusate Sodium 100 MG Capsule PO SCH (10:31)
[2018-03-29] MEDS: Polyethylene Glycol 3350 17 GM Packet PO SCH (10:31)
[2018-03-29] MEDS: Senna/Docusate Sodium 8.6/50 MG Tablet PO SCH (10:32)
[2018-03-29] MEDS: Buprenorphine/Naloxone 8/2 MG Sublingual Tablet SL SCH (10:32)
--- NOTE | 2018-03-29 16:43 | MB ---
cc: Guru Harvey MD DATE: 03/29/2018 REASON FOR CONSULTATION: Evaluate for cholecystitis. HISTORY OF PRESENT ILLNESS: Mr. Villa is a pleasant 37-year-old gentleman who presented to the emergency department on 03/26/2017 with complaints of abdominal pain. He reported that he was having some problem moving his bowels and urinating over the previous days prior to coming to the ER. He had been seen last week in the emergency room for low back pain and sciatica and was given steroids. The patient reports that the abdominal pain began a day or two before admission. He was worked up and found to have an abnormal CT scan. He was noted to have a lot of perinephric edema on the right as well as some consolidation of the right lower lobe. It should be noted the patient was also noted to have some gallstones without significant inflammatory change. It should also be noted the patient was noted to have extreme amount of stool in the colon, specifically in the right colon. He was admitted for observation. Urology consultation was obtained. General surgery consultation was obtained for the patient's abdominal pain to rule out cholecystitis. The patient reports no history of fatty food intolerance. He denies any episodes of previous right upper quadrant abdominal pain. He denies any episodes of jaundice. He denies any known family history of gallbladder disease. PAST MEDICAL HISTORY: He has hepatitis C. PAST SURGICAL HISTORY: None. MEDICATIONS: Well documented in the chart. ALLERGIES: HE HAS AN ALLERGY TO HALOPERIDOL AND PENICILLIN. SOCIAL HISTORY: He smokes and drinks. He is employed as a tree farmer. He reports previous IV drug abuse, but denies any current drug abuse. FAMILY HISTORY: As stated, is negative for any gallbladder disease. PHYSICAL EXAMINATION: VITAL SIGNS: Temperature is 98, pulse is 80, blood pressure is 140/70, respiratory rate 20. GENERAL: This is a pleasant, young male, sitting in his bed, in no apparent distress. HEENT: Pupils equal, round and reactive to light. Sclerae are white. Oropharynx is clear and moist. NECK: Supple. No masses. LUNGS: Clear to auscultation bilaterally. HEART: S1, S2. No murmur. ABDOMEN: Soft, nontender, nondistended. Negative Gallo sign. The patient localizes the pain to the right lateral ribcage and then it radiates posteriorly. He has no pain on my exam today. EXTREMITIES: Full range of motion x 4. NEUROLOGIC: Alert and oriented x 3. LABORATORY DATA: White blood cell count was 27 on admission, but is currently 12. Hemoglobin is 13, platelet count is 234. Electrolytes were all within normal limits. On admission, he was noted to have a slight elevation of alkaline phosphatase at 211 and AST at 42. However, no followup labs have been obtained. IMAGING: CT scan of the abdomen and pelvis shows extensive perinephric edema on the right, concerning for possible previous obstruction. He also has a right lower lobe infiltrate. He also is noted to have an extreme amount of stool in the colon, especially in the right colon. Gallbladder ultrasound is completely unremarkable with no evidence of ductal dilatation or gallbladder wall thickening. He does have some small gallstones, but there is no acute inflammatory change consistent with cholecystitis noted. IMPRESSION: 1. Abdominal pain. 2. Likely constipation. 3. Asymptomatic gallstones. 4. Right perinephric edema. PLAN: At this point, I see no clinical evidence or imaging evidence of cholecystitis. Specifically, he has no right upper quadrant pain on my exam. His imaging is unremarkable for any gallbladder disease. I believe most likely his abdominal pain was from his distended right colon. He reports he was given laxatives all day yesterday and he had 7 bowel movements last night. He states overall his pain is significantly improved from when he came in. At this point, I would not recommend surgical intervention. I believe he can be safely discharged home. I have offered him a followup in the office if he develops any symptoms of cholecystitis. At this point, I see no need for further surgical evaluation. We will sign off. Please call if there are any questions or concerns regarding his exam. Guru MD JACE Munguia/court , 04:03 PM , 04:14 PM
--- NOTE | 2018-03-29 23:29 | ECG ---
Date Performed: 03/28/2018 Time Performed: 16:47:26 PTAGE: 37 years EKG: Sinus rhythm . Normal ECG NO PREVIOUS TRACING DOCTOR: Caleb Funes Interpretating Date/Time 03/29/2018 23:27:21
--- NOTE | 2018-03-31 10:09 | P.DS ---
DS: Providers Date of admission: 03/26/18 16:58 Primary care physician: No Primary Care Physician Consults: 03/26/18 16:37 Consult to Urology Routine Consulting Provider: Rikki Lewis Vp Design:: Rikki Lewis Reason for Consultation: Perinephric extravasation on the right, sepsis Notified:: Service Spoke with:: Angelica Date Notified:: 03/26/18 Time Notified:: 16:47 Ordering Provider: CLAIRE 03/28/18 17:04 Consult to General Surgery Routine Consulting Provider: Guru Harvey Reason for Consultation: abdominal pain. 2cm stone in RUQ sono but no acute emilia. ? any role still for removal if not emilia but acute pain nonetheless. suspect intermittent obstructing possible. 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 Patient was recently seen in the ER on 03/19 with low back pain; lumbar spine CT showed minimal Schmorl nodes formation without any significant compromise to the exiting nerve roots or the thecal sac ; discharged with prescriptions for ibuprofen and Flexeril. Patient now presents 03/26/18 with continued diffuse right low back pain now with new radiation into the right flank, RLQ, and periumbilical regions, described as sharp/shocking 10/10 pains, worse with any movement or cough. He has been taking ibuprofen and flexeril with no relief. He has also tried heating pads without any relief. He denies fevers/chills but does report episodes of profuse diaphoresis. He reports nausea but no vomiting. He reports his last BM was 4-5 days ago described as small hard "rabbit santiago". He has still been eating, but only 1-2 meals a day. He reports significant abdominal distention which is new for him. He reports urinary hesitancy and dysuria when straining to urinate. Denies any increased urinary frequency/urgency. He does report nonproductive cough and shortness of breath and difficulty with deep inspiration secondary to the pain. He also reports significant generalized weakness and body aches which is unusual for him. Denies any specific chest pains. Denies any other medical complaints at this time. DS: Diagnosis Discharge Diagnosis (1) Pneumonia: Status: Acute (2) Sepsis: Status: Acute (3) Perinephric fluid collection: Status: Acute DS: Summary Patient is a 37 year old male with history of ivdu who presented with abdominal pain and sob. patient was admitted where the following treatments and services were provided. CT imaging of abdomen showed suspected pneumonia on right lobe and also fluid near right kidney. urology consulted and no intervention recommended. patient started on abx with improvement of wbc. aggressive bowel regimen for constipation. surgery was consuled for right upper quadrant. ruq sono with large stone but no emilia. no surgical intervention recommended. patient with large bm and improvement in pain. patient requesting discharge after improvement. [facility] referral provided since patient says he does not have a pmd to follow up with. Time Spent with Patient Total time spent providing and/or coordinating discharge services: > 30 min Patient is a 37 year old male with history of ivdu who presented with abdominal pain and sob. patient was admitted where the following treatments and services were provided. CT imaging of abdomen showed suspected pneumonia on right lobe and also fluid near right kidney. urology consulted and no intervention recommended. patient started on abx with improvement of wbc. aggressive bowel regimen for constipation. surgery was consuled for right upper quadrant. ruq sono with large stone but no emilia. no surgical intervention recommended. patient with large bm and improvement in pain. patient requesting discharge after improvement. [facility] referral provided since patient says he does not have a pmd to follow up with. Quality: VTE Deep Vein Thrombosis/Pulmonary Embolism Present on Admission: No Results Labs on day of discharge: Preliminary micro results at discharge 03/26/18 15:31 Aerobic Blood Culture - Preliminary Blood - Peripheral No growth in 4 days Anaerobic Blood Culture - Preliminary No growth in 4 days 03/26/18 15:39 Aerobic Blood Culture - Preliminary Blood - Peripheral No growth in 4 days Anaerobic Blood Culture - Preliminary No growth in 4 days Impressions ITS Impressions Abdomen/Pelvis CT 03/26/18 13:34 CONCLUSION: 1. Extensive perinephric fluid is noted on the right suggestive of pyelosinus extravasation related to obstruction. Mild ureteropelvicaliectasis is also noted on the right. No definite calcified obstructing calculus is noted. The findings raise possibility of recently passed or noncalcified right distal ureteral stone. Clinical correlation is recommended. 2. Alveolar consolidation of the right lower lobe posteriorly raising the possibility of atelectasis and/or pneumonia. 3. Minimal scattered atelectatic changes within left lower lobe posteriorly. 4. Hepatosplenomegaly. 5. Right colon is distended and filled with fecal debris but no definite obstructing lesion is identified. 6. Cholelithiasis. 7. Cardiomegaly. 8. Mild degenerative changes and scoliosis of the thoracolumbar spine. Chest X-Ray 03/26/18 15:07 CONCLUSION: 1. Right basilar airspace consolidation which may reflect developing pneumonia or aspiration in the appropriate clinical setting. 2. Bibasilar atelectasis/scarring. Liver Ultrasound 03/28/18 00:00 CONCLUSION: 1. Mild hepatosplenomegaly. 2. Cholelithiasis. No evidence of cholecystitis. 3. Free fluid identified within Morison's pouch and adjacent to the spleen with edematous changes of the right perinephric fat. No evidence of hydronephrosis. Discharge Plan Discharge Disposition Patient Disposition: Discharge Home Discharge Condition Condition: Stable Discharge Order Discharge Orders: Discharge Order (Routine); Ordered 03/29/18 Ordered By: Tomás Lerma Discharge Details Anticipated Discharge Date: 03/29/18 Discharge Comment: discharge after [facility] referral provided. Physicians Team Primary Care Provider: Primary Care Kathy Wiggins Attending Provider: Tomás Lerma Other Providers: Rikki Lewis ; Guru Harvey Rxs /Orders / Referrals /Forms Prescriptions: New levofloxacin [Levaquin] 500 mg tablet 500 mg PO DAILY 3 Days Qty: 3 RF: 0 No Action No Known Home Medications RF: 0 Referrals: [facility] [Outside] - See Instructions (Please follow up outpatient after completion of antibiotics within 7 days. Levaquin 500mg x 3 days to finish 7 day course ) [facility] Care Kathy Wiggins [Primary Care Provider] - See Instructions Discharge Instructions Patient Printed Instructions: Hydrocodone/Acetaminophen (By mouth), Levofloxacin (By mouth) Additional Instructions: please follow up [facility] post antibiotics completion in 7 days. complete 3 additional days of antibiotics outpatient Post Discharge Care Plan Care Plan Goals: Discharge Care Plan Goals for Pneumonia You have been diagnosed with pneumonia. This is a serious lung infection. Most cases of pneumonia are caused by bacteria. Pneumonia most often occurs in older adults, young children, and people with chronic health problems. Directions to Meet your Goals: 1. Home care: * Take your medicine exactly as directed. Dont skip doses. Continue taking your antibiotics as until they are all gone, even if you start to feel better. This will prevent the pneumonia from coming back. * Drink at least 8 glasses of water daily, unless directed otherwise. This helps to loosen and thin secretions so that you can cough them up. * Use a cool-mist humidifier in your bedroom. Be sure to clean the humidifier daily. * Dont use medicines to suppress your cough unless your cough is dry, painful, or interferes with your sleep. Coughing up mucus is normal. You may use an expectorant if your doctor says its okay. * You can use warm compresses or a heating pad on the lowest setting to relieve chest discomfort. Use several times a day for 15-20 minutes at a time. To prevent injury to your skin, set the temperature to warm, not hot. Dont put the compress or pad directly on your skin. Make certain it has a cover or wrap it in a towel. This is to prevent skin nguyen. * Get plenty of rest until your fever, shortness of breath, and chest pain go away. * Plan to get a flu shot every year. The flu is a common cause of pneumonia. Getting a flu shot every year can help prevent both the flu and pneumonia. 2. Getting the pneumococcal vaccine: * Talk with your doctor about getting the pneumococcal vaccine. Pneumococcal pneumonia is caused by bacteria that spread from person to person. It can cause minor problems, such as ear infections. But it can also turn into life- threatening illnesses of the lungs (pneumonia), the covering of the brain and spinal cord (meningitis), and the blood (bacteremia). * Make sure to ask your doctor if you should have the vaccine. Children under 2 years of age, adults over age 65, people with certain health conditions, and smokers are at the highest risk of pneumococcal disease. This vaccine can help prevent pneumococcal disease in both adults and children. 3. Follow-up care: Do Not miss your follow-up appointment. Keep up with all your appointments and yearly check ups 4. When to call your doctor: Call your doctor immediately if you have any of the following: Fever of 100.4F (38C) or higher, or as directed by your healthcare provider Mucus from the lungs (sputum) thats yellow, green, bloody, or smells bad Vomiting Any symptoms that get worse 5. Call 911: Call 911 right away if you have any of the following: Chest pain Trouble breathing Blue lips or fingernails Status ED Status: Left Department Discharge Information Discharge Date/Time: 03/29/18 15:55
== END 2018-03-29 15:55 | disposition home or self-care (01) | DRG 871 ==
LOC: NEPE 12:57 → NEDA 16:58 → N04 20:01
PROVIDERS: ADMIT Internal Medicine; ATTEND Internal Medicine
DX: Z88.0 Allergy status to penicillin; R30.0 Dysuria; J18.9 Pneumonia, unspecified organism; R74.8 Abnormal levels of other serum enzymes; K59.00 Constipation, unspecified; R39.11 Hesitancy of micturition; A41.9 Sepsis, unspecified organism; J98.11 Atelectasis; F17.210 Nicotine dependence, cigarettes, uncomplicated; F14.11 Cocaine abuse, in remission; R39.16 Straining to void; B19.20 Unspecified viral hepatitis C without hepatic coma; F11.11 Opioid abuse, in remission; F12.90 Cannabis use, unspecified, uncomplicated; R16.2 Hepatomegaly with splenomegaly, not elsewhere classified; K80.20 Calculus of gallbladder without cholecystitis without obstruction; N28.89 Other specified disorders of kidney and ureter; M54.40 Lumbago with sciatica, unspecified side
CPT/HCPCS: 71010; 71045; 74177; 76705; 80048; 80053; 80074; 81001; 83605; 83690; 83735; 84145; 84484; 85025; 85027; 85610; 85730; 87040; 87449; 90761; 90765; 90775; 93005; 94150; 96361; 96365; 96375; 99285; J0131; J0456; J0692; J0696; J1885; J2270; J2405; J7030; J7050; Q9967